=== PATIENT | female | born 1945 | race Caucasian/White ===

== ENCOUNTER 2016-08-23 02:18 | Inpatient (IN) | payer MEDICARE, OTHER ==
[2016-08-23] MEDS ORDERED: SODIUM CHLORIDE 1,000 ML IV STA (04:39)
[2016-08-23] MEDS ORDERED: morphine CARPU-JECT 4 MG/1 ML DISP.SYRIN IVPUSH ONE (04:39)
[2016-08-23] MEDS ORDERED: METOCLOPRAMIDE HCL INJECTION 10 MG/2 ML VIAL IVPB ONE (04:39)
[2016-08-23] MEDS ORDERED: morphine CARPU-JECT 4 MG/1 ML DISP.SYRIN ONE (04:54)
[2016-08-23] MEDS ORDERED: METOCLOPRAMIDE HCL INJECTION 10 MG/2 ML VIAL ONE (04:54)
[2016-08-23 05:19] LABS: MCH 27.9 pg (25.7-33.7); WHITE BLOOD COUNT 11.2 K/mm3 (4.0-10.0)
[2016-08-23 05:25] LABS: BASOPHIL 0.1 % (0-2.0); EOSINOPHIL 0.6 % (0-4.5); MCHC 32.7 g/dl (32.0-36.0); MEAN CELL VOLUME 85.3 fl (80-96); MEAN PLT VOLUME 7.9 fl (7.5-11.1); NEUTROPHILS 90.5 % (42.8-82.8); PLATELET COUNT 254 K/MM3 (134-434); RDW 13.6 % (11.6-15.6)
[2016-08-23 05:41] LABS: ALBUMIN 3.6 g/dl (3.4-5.0); AMYLASE 48 U/L (25-115); ANION GAP 9 (8-16); BILIRUBIN,TOTAL 2.9 mg/dL (0.2-1.0); CALCIUM 10.2 mg/dL (8.5-10.1); CO2 32 mmol/L (21-32); COCKROFT - GAULT 80.7925; CREATININE 0.8 mg/dL (0.55-1.02); GLUCOSE,RANDOM 121 mg/dL (74-106); SGOT/AST 166 U/L (15-37); SGPT/ALT 205 U/L (12-78); TOT PROT 6.8 g/dl (6.4-8.2)
[2016-08-23 05:44] LABS: ALK PHOS 245 U/L (45-117); TROPONIN I < 0.02 ng/ml (0.00-0.05)
[2016-08-23] MEDS ORDERED: SODIUM CHLORIDE 500 ML IV STA (06:35)
[2016-08-23] MEDS ORDERED: POTASSIUM CHLORIDE 20 MEQ PREMIX IVPB 100 ML IVPB ONE (06:36)
--- NOTE | 2016-08-23 06:40 | PDOC ---
History of Present Illness - General Chief Complaint: Nausea/Vomiting Stated Complaint: STOMACH PAIN,VOMITING Time Seen by Provider: 08/23/16 04:38 History Source: Patient, Family Exam Limitations: No Limitations - History of Present Illness Travel History: No Initial Comments: 08/23/16 06:37 70yo Female Patient w/ PmHx: HTN, Cervical Ca, Hysterectomy, presents to ED c/o worsening abdominal pain for past 3 days. Associated nausea. Patient states when she eats her abdomen hurts, and when she does not eat pain is worse. OTC [place] with no relief. Last meal 6-7pm last night. Patient denies any other complaints at this time. Timing/Duration: reports: constant, getting worse Quality: reports: severe Abdominal Pain Onset Location: reports: RUQ, epigastric Pain Radiation: reports: back Activities at Onset: reports: eating Treatment Prior to Arrive: improves with: antacids Aggravating Factors: improves with: Eating Alleviating Factors: improves with: None Past History - Travel Traveled outside of the country in the last 30 days: No Close contact w/someone who was outside of country & ill: No - Past Medical History Allergies/Adverse Reactions: Allergies Allergy/AdvReac Type Severity Reaction Status Date / Time No Known Allergies Allergy Verified 08/23/16 02:52 Home Medications: Ambulatory Orders Famotidine 20 mg PO BID 08/23/16 Hydrochlorothiazide 50 mg PO DAILY 08/23/16 Metoprolol Succinate [Toprol Xl] 50 mg PO DAILY 08/23/16 Montelukast Na [Singulair -] 10 mg PO PRN 08/23/16 - Psycho/Social/Smoking Cessation Hx Suicidal Ideation: No Smoking History: Never smoked Have you smoked in the past 12 months: No Information on smoking cessation initiated: No Hx Alcohol Use: No Drug/Substance Use Hx: No Abd/GI Specific PMHX - Complaint Specific PMHX Colitis: No Diverticulitis: No Gall Bladder Disease: No GERD: No Hepatitis: No Irritable Bowel Synd (IBS): No Pancreatitis: No GI Ulcer Disease: No Review of Systems - Review of Systems Able to Perform ROS?: Yes Is the patient limited [place] proficient: No Constitutional: No: Chills, Fever Respiratory: No: Cough, Shortness of Breath, Stridor Cardiac (ROS): No: Chest Pain, Lightheadedness, Palpitations, Chest Tightness ABD/GI: Yes: Diarrhea, Nausea, Poor Appetite, Poor Fluid Intake, Vomiting, Other (RUQ and Epigastric Pain). No: Constipated, Rectal Bleeding : No: Burning, Dysuria, Flank Pain, Hematuria Musculoskeletal: Yes: Back Pain Integumentary: No: Bruising, Erythema, Rash, Sweating Neurological: No: Headache, Seizure, Ataxia, Dizziness All Other Systems: Reviewed and Negative *Physical Exam - Vital Signs Last Vital Signs Temp Pulse Resp BP Pulse Ox 99.3 F 113 H 18 143/69 95 08/23/16 02:52 08/23/16 02:52 08/23/16 02:52 08/23/16 02:52 08/23/16 02:52 - Physical Exam General Appearance: Yes: Nourished, Appropriately Dressed, Apparent Distress, Moderate Distress. No: Mild Distress, Severe Distress Neck: positive: Trachea midline, Supple. negative: Decreased range of motion, Stridor, Lymphadenopathy (R), Lymphadenopathy (L) Respiratory/Chest: positive: Lungs Clear, Normal Breath Sounds. negative: Chest Tender, Respiratory Distress, Accessory Muscle Use, Labored Respiration, Rapid RR, Stridor, Wheezing Cardiovascular: positive: Tachycardia Gastrointestinal/Abdominal: positive: Normal Bowel Sounds, Tender (+ [place]), Soft, Guarding, Rebound, Tenderness (RUQ and Epigastric region), Other (Large abdomen). negative: Distended Musculoskeletal: positive: Normal Inspection. negative: CVA Tenderness Extremity: positive: Normal Capillary Refill, Normal Inspection, Normal Range of Motion. negative: Pedal Edema, Swelling, Calf Tenderness, Erythema, Inflammation Integumentary: positive: Normal Color, Dry, Warm Neurologic: positive: home builder II-XII NML intact, Fully Oriented, Alert, Normal Mood/ Affect, Normal Response, Motor Strength 5/5 ED Treatment Course - LABORATORY CBC & Chemistry Diagram: 08/23/16 05:10 08/23/16 05:10 - ADDITIONAL ORDERS Additional order review: Laboratory Results 08/23/16 05:10 Sodium 143 Potassium 2.6 L* Chloride 102 Carbon Dioxide 32 Anion Gap 9 BUN 14 Creatinine 0.8 Creat Clearance w eGFR > 60 Random Glucose 121 H Calcium 10.2 H Total Bilirubin 2.9 H AST 166 H ALT 205 H Alkaline Phosphatase 245 H Creatine Kinase 108 Troponin I < 0.02 Total Protein 6.8 Albumin 3.6 Total Amylase 48 Lipase 86 08/23/16 05:10 RBC 4.75 MCV 85.3 MCHC 32.7 RDW 13.6 MPV 7.9 Neutrophils % 90.5 H Lymphocytes % 3.8 L Monocytes % 5.0 Eosinophils % 0.6 Basophils % 0.1 - RADIOLOGY Radiology Studies Ordered: Category Date Time Status ABDOMEN & PELVIS CT WITH CONTR [CT] Stat CT Scan 08/23/16 04:40 Taken - Medications Given in the ED: ED Medications Discontinued Medications Generic Name Dose Route Start Last Admin Trade Name Freq PRN Reason Stop Dose Admin Sodium Chloride 1,000 mls @ 1,000 mls/hr 08/23/16 04:39 08/23/16 05:10 Normal Saline - IV 08/23/16 05:38 1,000 mls/hr ASDIR STA Administration Metoclopramide HCl 10 mg 08/23/16 04:39 08/23/16 05:10 Reglan Injection - IVPB 08/23/16 04:40 10 mg ONCE ONE Administration Morphine Sulfate 4 mg 08/23/16 04:39 08/23/16 05:10 Morphine Injection - IVPUSH 08/23/16 04:40 4 mg ONCE ONE Administration
[2016-08-23] MEDS ORDERED: KCL 10 MEQ IVPB 200 ML IVPB ONE (06:50)
--- NOTE | 2016-08-23 07:33 | PDOC ---
ED Treatment Course - LABORATORY CBC & Chemistry Diagram: 08/23/16 05:10 08/23/16 05:10 - ADDITIONAL ORDERS Additional order review: Laboratory Results 08/23/16 05:10 Sodium 143 Potassium 2.6 L* Chloride 102 Carbon Dioxide 32 Anion Gap 9 BUN 14 Creatinine 0.8 Creat Clearance w eGFR > 60 Random Glucose 121 H Calcium 10.2 H Total Bilirubin 2.9 H AST 166 H ALT 205 H Alkaline Phosphatase 245 H Creatine Kinase 108 Troponin I < 0.02 Total Protein 6.8 Albumin 3.6 Total Amylase 48 Lipase 86 08/23/16 05:10 RBC 4.75 MCV 85.3 MCHC 32.7 RDW 13.6 MPV 7.9 Neutrophils % 90.5 H Lymphocytes % 3.8 L Monocytes % 5.0 Eosinophils % 0.6 Basophils % 0.1 - Medications Given in the ED: ED Medications Discontinued Medications Generic Name Dose Route Start Last Admin Trade Name Freq PRN Reason Stop Dose Admin Sodium Chloride 1,000 mls @ 1,000 mls/hr 08/23/16 04:39 08/23/16 05:10 Normal Saline - IV 08/23/16 05:38 1,000 mls/hr ASDIR STA Administration Metoclopramide HCl 10 mg 08/23/16 04:39 08/23/16 05:10 Reglan Injection - IVPB 08/23/16 04:40 10 mg ONCE ONE Administration Morphine Sulfate 4 mg 08/23/16 04:39 08/23/16 05:10 Morphine Injection - IVPUSH 08/23/16 04:40 4 mg ONCE ONE Administration Potassium Chloride 20 meq 08/23/16 06:36 08/23/16 06:59 Potassium Chloride 20 Meq Premix Ivpb - IVPB 08/23/16 06:37 20 meq ONCE ONE Administration Progress Note - Progress Note Progress Note: I have received report from JEFF Aguilar regarding this patient. Pt's initial chief complaint: abdominal pain Pt's work up completed prior to sign out: labs, EKG, UA, CT scan abd/pelvis Pt treatment given from prior staff: IV fluids, morphine, reglan, potassium Pt plan to be completed: Awaiting gallbladder ultrasound Dispo: Most likely admission Medical Decision Making - Medical Decision Making A/P: 70 y/o female with worsening abdominal pain x 3 days. The patient also has nausea. She was worked up by JEFF Aguilar, has an elevated WBC count with left shift, grossly elevated liver enzymes but negative CT scan. Suspect wood. Awaiting gallbladder ultrasound. Gallbladder Ultrasound IMPRESSION: Multiple small gallstones with a 9.5 x 6mm stone at the level of the neck without sonographic evidence of acute cholecystitis. Spoke with Dr. Whitfield, surgery, who will be in shortly to see the patient. Paged Dr. Cavanaugh for admission. Pt given IV zosyn Pt made NPO. Spoke with Dr. Cavanaugh who accepts admission to med/surg. Paged Dr. Mirza - awaiting call back. *DC/Admit/Observation/Transfer Diagnosis at time of Disposition: Acute cholecystitis - Discharge Dispostion Condition at time of disposition: Stable Admit: Yes - Referrals
[2016-08-23 09:13] LABS: URINE APPEARANCE CLEAR; URINE BILIRUBIN NEGATIVE (NEGATIVE); URINE BLOOD NEGATIVE (NEGATIVE); URINE COLOR DKYELLOW; URINE GLUCOSE (UA) NEGATIVE (NEGATIVE); URINE KETONE NEGATIVE (NEGATIVE); URINE LEUK ESTERASE NEGATIVE (NEGATIVE); URINE NITRITE NEGATIVE (NEGATIVE); URINE PROTEIN NEGATIVE (NEGATIVE); URINE UROBILINOGEN 4.0 E.U/dl E.U./dl (0.2-1.0)
[2016-08-23] MEDS ORDERED: PIPERACILLIN/TAZOB 3.375 GM/50 ML PRE-DOCKED IVPB ONE (11:47)
[2016-08-23] MEDS ORDERED: PIPERACILLIN/TAZOB 3.375 GM 50 ML IVPB ONE (12:08)
[2016-08-23] MEDS ORDERED: METOPROLOL SUCCINATE 50 MG TAB.SR.24H (FP) PO ONE (13:58)
[2016-08-23] MEDS ORDERED: LACTATED RINGERS SOLUTION 1,000 ML IV SCH ×2 (14:00)
--- NOTE | 2016-08-23 14:03 | EKG ---
Test Reason : Blood Pressure : / mmHG Vent. Rate : 102 BPM Atrial Rate : 102 BPM P-R Int : 184 ms QRS Dur : 100 ms QT Int : 340 ms P-R-T Axes : 035 -30 040 degrees QTc Int : 443 ms SINUS TACHYCARDIA LEFT AXIS DEVIATION INFERIOR INFARCT , AGE UNDETERMINED ABNORMAL ECG NO PREVIOUS ECGS AVAILABLE Confirmed by CELESTE CROCKETT MD ([id number]) on 08/23/2016 2:03:46 PM Referred By: Confirmed By:CELESTE CROCKETT MD
--- NOTE | 2016-08-23 14:13 | CONSULT ---
Consult Consult Specialty:: Surgery Referred by:: SATISH Marlow Reason for Consultation:: cholecystitis - History of Present Illness Chief Complaint: RUQ pain x 3d associated with chills and vomiting yesterday History of Present Illness: Pt seen and examined with family at bedside in ER; time spent 35 mins. 70yo F with HTN, asthma, h/o cervical CA s/p vaginal hysterectomy and laparoscopic ?LN dissection ~9yrs ago (no chemo/XRT needed), presents with 3 days of RUQ abdominal pain unresponsive to antacids. Pt thought it was gas. She had been eating anyway, and the pain waxed and waned, but yesterday was the worst - associated with shaking chills, itching, and multiple episodes of vomiting beginning after dinner (meatloaf, mashed potatoes, corn on cob). Nothing has really relieved pain or made it specifically worse. Last BM was yesterday, tends to constipation/hard stools). Currently without nausea or pain. She had her regular meds yesterday morning but not since and does take baby aspirin daily. Last 800mg ibuprofen (occasional use) for knee arthritis was a few days ago. In ER, she had temp 99.3, mildly elevated wbc and LFTs, normal am/lip, low K+ and CO2 32. She has had some K+ replaced and been given Zosyn and some fluids. CT abd/pelvis showed some diverticulosis, mild periportal edema without ductal dilation and a ~1cm calcification thought possibly to be a lymph node; US shows multiple gallstones and a stone likely impacted in the cystic duct/near the neck of the gallbladder without pericholecystic fluid or wall thickening. CBD measures up to 6.7mm. Pt also reports her doctor is following small findings (nodules?) on chest XR, found few weeks ago - she is scheduled for repeat imaging end of September and a specialist visit in October. - History Source History Provided By: Patient Limitations to Obtaining History: No Limitations - Past Medical History Cardio/Vascular: Yes: HTN, [place] (per patient, her EKG showed an old infarction, but she was never aware of one) Pulmonary: Yes: Asthma (uses inhaler few times a week, lately using Advair diskus daily instead of prn) Gastrointestinal: Yes: Constipation Reproductive: Yes: Other (cervical CA s/p hysterectomy) ...: No Musculoskeletal: Yes: Osteoarthritis (mostly in knees) Endocrine: Yes: Diabetes Mellitus (previous dx of pre-diabetes, but better with dietary changes) - Past Surgical History Past Surgical History: Yes: Hysterectomy Additional Surgical History: pelvic laparoscopy (LN dissection per pt) - Alcohol/Substance Use Hx Alcohol Use: Yes (rare sangria) History of Substance Use: reports: None - Smoking History Smoking history: Never smoked Have you smoked in the past 12 months: No Home Medications - Allergies Allergies/Adverse Reactions: Allergies Allergy/AdvReac Type Severity Reaction Status Date / Time No Known Allergies Allergy Verified 08/23/16 02:52 - Home Medications Home Medications: Ambulatory Orders Albuterol Sulfate Inhaler - [Ventolin HFA Inhaler -] 1 - 2 puff IN PRN 08/23/16 Aspirin [Aspirin EC] PO DAILY 08/23/16 Famotidine 20 mg PO BID 08/23/16 Fluticasone/Salmeterol [Advair 250-50 Diskus] IN DAILY PRN 08/23/16 Hydrochlorothiazide 50 mg PO DAILY 08/23/16 Ibuprofen PO PRN PRN 08/23/16 Metoprolol Succinate [Toprol Xl] 50 mg PO DAILY 08/23/16 Montelukast Na [Singulair -] 10 mg PO PRN 08/23/16 Family Disease History - Family Disease History Family Disease History: Diabetes: Father ( late 60s of heart attack, had finger amputations sec to DM/smoking), Heart Disease: Father, [place]: Mother ( breast at 31, of) Review of Systems - Review of Systems Constitutional: reports: Chills (yesterday). denies: Unintentional Wgt. Loss Eyes: reports: Other (wears reading glasses). denies: Blurred Vision, Double Vision HENT: denies: Difficult Swallowing, Hearing Loss Cardiovascular: denies: Chest Pain, Palpitations Respiratory: reports: SOB on Exertion. denies: Cough, Orthopnea Gastrointestinal: reports: Abdominal Pain, Constipation, Nausea (with hpi), Vomiting (with hpi). denies: Diarrhea Genitourinary: reports: Frequency (including nocturia). denies: Burning, Dysuria Breasts: reports: No Symptoms Reported Musculoskeletal: reports: Joint Pain (knees mainly). denies: Back Pain, Muscle Weakness Integumentary: denies: Rash, Wound Neurological: denies: Dizziness, Headache Hematology/Lymphatic: denies: Easily Bruised, Excessive Bleeding, Swollen Glands Physical Exam Vital Signs: Vital Signs Temperature 99.3 F 08/23/16 02:52 Pulse Rate 78 08/23/16 08:27 Respiratory Rate 18 08/23/16 08:27 Blood Pressure 100/59 08/23/16 08:27 O2 Sat by Pulse Oximetry (%) 98 08/23/16 08:27 Constitutional: Yes: No Distress, Obese Eyes: Yes: Conjunctiva Clear, EOM Intact HENT: Yes: Atraumatic, Normocephalic Cardiovascular: Yes: Regular Rate and Rhythm. No: Murmur Respiratory: Yes: Regular, CTA Bilaterally. No: Wheezes Gastrointestinal: Yes: Soft, Abdomen, Obese. No: Distention, Palpable Mass, Tenderness (previously tender, none at time of exam, no Arevalo's at present) ...Rectal Exam: Yes: Deferred Renal/: No: CVA Tenderness - Left, CVA Tenderness - Right Extremities: No: Calf Tenderness Edema: Yes (minimal at ankles/feet) Peripheral Pulses WNL: Yes Integumentary: No: Rash, Venous Stasis Changes Neurological: Yes: Alert, Oriented Labs: wbc 11 K was 2.6, CO2 32 H/H 13/40 am/lip normal bili 2.9 alk phos 245, ALT/AST 205/166 Laboratory Results - last 24 hr 08/23/16 08/23/16 08/23/16 05:10 05:10 08:55 WBC 11.2 H RBC 4.75 Hgb 13.2 Hct 40.5 MCV 85.3 MCHC 32.7 RDW 13.6 Plt Count 254 MPV 7.9 Neutrophils % 90.5 H Lymphocytes % 3.8 L Monocytes % 5.0 Eosinophils % 0.6 Basophils % 0.1 Sodium 143 Potassium 2.6 L* Chloride 102 Carbon Dioxide 32 Anion Gap 9 BUN 14 Creatinine 0.8 Creat Clearance w eGFR > 60 Random Glucose 121 H Calcium 10.2 H Total Bilirubin 2.9 H AST 166 H ALT 205 H Alkaline Phosphatase 245 H Creatine Kinase 108 Troponin I < 0.02 Total Protein 6.8 Albumin 3.6 Total Amylase 48 Lipase 86 Urine Color Dkyellow Urine Appearance Clear Urine pH 7.0 Urine Protein Negative Urine Glucose (UA) Negative Urine Ketones Negative Urine Blood Negative Urine Nitrite Negative Urine Bilirubin Negative Urine Urobilinogen 4.0 e.u/dl H Ur Leukocyte Esterase Negative Imaging - Results Cat Scan: Report Reviewed, Image Reviewed (calcification consistent with gallstone near cystic duct) Ultrasound: Report Reviewed, Image Reviewed (impacted gallstone with others in gallbladder, cbd to 0.67cm, no wall thickening or pericholecystic fluid) MRI: Pending (mrcp) EKG: Report Reviewed, Image Reviewed (sinus tach 102, possible old inferior infarct) Problem List - Problems (1) Calculus of gallbladder with biliary obstruction but without cholecystitis Assessment/Plan: Likely impacted stone in neck of gallbladder/cystic duct with multiple gallstones in gallbladder. Patient will need MRCP prior to cholecystectomy. Agree with antibiotics given elevation of WBC with left shift, h/o chills and low-grade temp on presentation. Maintain NPO except beta-zachery with sips and IV hydration. Would hold baby aspirin for now. ER has started trending labs and correcting electrolyte abnormalities. Discussed laparoscopic possible open cholecystectomy with patient and family members at bedside. Risks/benefits/alternatives discussed including but not limited to bleeding, infection, bile leak, injury to liver/intestines/bile ducts /nearby structures. Patient agreeable to surgery; will followup after MRCP and GI consult to schedule, may be able to do tomorrow. Thank you for the opportunity to participate in the care of this patient. Code(s): K80.21 - CALCULUS OF GALLBLADDER W/O CHOLECYSTITIS WITH OBSTRUCTION (2) Hypertension Assessment/Plan: continue beta-zachery, hold diuretic, hold baby asa Code(s): I10 - ESSENTIAL (PRIMARY) HYPERTENSION (3) Obesity (BMI 30.0-34.9) Code(s): E66.9 - OBESITY, UNSPECIFIED (4) Asthma Assessment/Plan: continue home meds Code(s): J45.909 - UNSPECIFIED ASTHMA, UNCOMPLICATED (5) Hypokalemia, gastrointestinal losses Assessment/Plan: replacing K+ and rechecking labs, antiemetic prn Code(s): E87.6 - HYPOKALEMIA (6) Dehydration, mild Assessment/Plan: NPO/IVF - will start with LR Code(s): E86.0 - DEHYDRATION
[2016-08-23] MEDS ORDERED: METOPROLOL SUCCINATE 50 MG TAB.SR.24H (FP) ONE (14:28)
[2016-08-23 15:55] LABS: BASOPHIL 0.2 % (0-2.0); EOSINOPHIL 0.3 % (0-4.5); MCH 28.1 pg (25.7-33.7); MCHC 32.9 g/dl (32.0-36.0); MEAN CELL VOLUME 85.4 fl (80-96); MEAN PLT VOLUME 8.1 fl (7.5-11.1); NEUTROPHILS 87.6 % (42.8-82.8); PLATELET COUNT 231 K/MM3 (134-434); RDW 13.8 % (11.6-15.6); WHITE BLOOD COUNT 13.7 K/mm3 (4.0-10.0)
[2016-08-23 16:25] LABS: ALBUMIN 3.1 g/dl (3.4-5.0); ANION GAP 8 (8-16); BILIRUBIN,TOTAL 2.3 mg/dL (0.2-1.0); CALCIUM 9.2 mg/dL (8.5-10.1); CO2 32 mmol/L (21-32); COCKROFT - GAULT 107.7205; CREATININE 0.6 mg/dL (0.55-1.02); GLUCOSE,RANDOM 104 mg/dL (74-106); SGOT/AST 124 U/L (15-37); TOT PROT 6.1 g/dl (6.4-8.2)
[2016-08-23 16:29] LABS: ALK PHOS 204 U/L (45-117); SGPT/ALT 182 U/L (12-78)
[2016-08-23] MEDS ORDERED: KCL 10 MEQ IVPB 100 ML IVPB ONE (17:34)
[2016-08-23] MEDS: KCL 10 MEQ IVPB 100 ML IVPB SCH ×5 (17:47→23:55)
[2016-08-23] MEDS ORDERED: SODIUM CHLORIDE 0.45% 1,000 ML with POTASSIUM CHLORIDE 20 MEQ IVPB SCH (18:00)
[2016-08-23] MEDS ORDERED: INSULIN (NOVOLOG) ASPART 100 UNITS/ML 10ML VIAL ONE (18:05)
[2016-08-23] MEDS ORDERED: SODIUM CHLORIDE 0.45%/POT 1,000 ML IV SCH (18:15)
--- NOTE | 2016-08-23 19:16 | CON.GI ---
Consult Consult Specialty:: gastroenterology Referred by:: hospitalist/ Payal Green MD - History of Present Illness History of Present Illness: 70 y/o female with PMH of cervical ca,s/p TAHBSO 10 years ago, lung mass recently diagnosed 2 mos ago was doing well until 3 days ago when she developed progressive epigastric and ruq pain associated with nausea and vomiting. - Past Medical History Cardio/Vascular: Yes: HTN, [place] (per patient, her EKG showed an old infarction, but she was never aware of one) Pulmonary: Yes: Asthma (uses inhaler few times a week, lately using Advair diskus daily instead of prn) Gastrointestinal: Yes: Constipation ...: No Musculoskeletal: Yes: Osteoarthritis (mostly in knees) Endocrine: Yes: Diabetes Mellitus (previous dx of pre-diabetes, but better with dietary changes) - Past Surgical History Past Surgical History: Yes: Hysterectomy Additional Surgical History: pelvic laparoscopy (LN dissection per pt) - Alcohol/Substance Use Hx Alcohol Use: Yes (rare sangria) History of Substance Use: reports: None - Smoking History Smoking history: Never smoked Have you smoked in the past 12 months: No Home Medications - Allergies Allergies/Adverse Reactions: Allergies Allergy/AdvReac Type Severity Reaction Status Date / Time No Known Allergies Allergy Verified 08/23/16 02:52 - Home Medications Home Medications: Ambulatory Orders Albuterol Sulfate Inhaler - [Ventolin HFA Inhaler -] 1 - 2 puff IN PRN 08/23/16 Aspirin [Aspirin EC] PO DAILY 08/23/16 Famotidine 20 mg PO BID 08/23/16 Fluticasone/Salmeterol [Advair 250-50 Diskus] IN DAILY PRN 08/23/16 Hydrochlorothiazide 50 mg PO DAILY 08/23/16 Ibuprofen PO PRN PRN 08/23/16 Metoprolol Succinate [Toprol Xl] 50 mg PO DAILY 08/23/16 Montelukast Na [Singulair -] 10 mg PO PRN 08/23/16 Family Disease History - Family Disease History Family Disease History: Diabetes: Father ( late 60s of heart attack, had finger amputations sec to DM/smoking), Heart Disease: Father, [place]: Mother ( breast at 31, of) Review of Systems - Review of Systems Constitutional: denies: Fever Eyes: denies: Blind Spots HENT: denies: Difficult Swallowing Neck: denies: Decreased ROM Cardiovascular: denies: Chest Pain Respiratory: denies: SOB Gastrointestinal: reports: Abdominal Pain. denies: Dysphagia, Indigestion, Melena, Nausea, Rectal Bleeding Physical Exam-GI Vital Signs: Vital Signs Temperature 98.7 F 08/23/16 18:00 Pulse Rate 79 08/23/16 18:00 Respiratory Rate 20 08/23/16 18:00 Blood Pressure 113/56 08/23/16 18:00 O2 Sat by Pulse Oximetry (%) 97 08/23/16 15:02 Constitutional: Yes: Well Nourished Eyes: Yes: Conjunctiva Clear HENT: Yes: Atraumatic Neck: Yes: Supple Cardiovascular: Yes: Regular Rate and Rhythm Respiratory: Yes: CTA Bilaterally ...Palpate: Yes: Soft. No: Firm/Rigid, Guarding, Hepatomegaly, Mass, Pulsatile Mass, Splenomegaly, Tenderness (--on pain meds) Labs: CBC, BMP 08/23/16 15:50 08/23/16 15:50 Hepatic Panel Total Bilirubin 2.3 mg/dL (0.2-1.0) H D 08/23/16 15:50 AST 124 U/L (15-37) H D 08/23/16 15:50 ALT 182 U/L (12-78) H 08/23/16 15:50 Alkaline Phosphatase 204 U/L (45-117) H 08/23/16 15:50 Albumin 3.1 g/dl (3.4-5.0) L 08/23/16 15:50 Problem List - Problems (1) Acute cholecystitis Assessment/Plan: associated with elevated liver enzymes and and top normal common bile duct R> MRCP if negative ok to have cholecystectomy discussed possibility of ERC, discusses risk including pancreatitis and anaesthesia discuused with Dr Whitfield Code(s): K81.0 - ACUTE CHOLECYSTITIS (2) Lung mass Assessment/Plan: R>chest CT pulmonary consult Code(s): R91.8 - OTHER NONSPECIFIC ABNORMAL FINDING OF LUNG FIELD
--- NOTE | 2016-08-23 20:13 | HP ---
Admitting History and Physical - Primary Care Physician PCP: Brunilda Cavanaugh - Admission History of Present Illness: 70yo Female Patient w/ PmHx: HTN, Cervical Ca, Hysterectomy, presents to ED c/o worsening abdominal pain for past 3 days. Associated nausea. Patient states when she eats her abdomen hurts, and when she does not eat pain is worse. OTC Ag[place] with no relief. Last meal 6-7pm last night. CAME TO ER FOR FURTHER EVALUATION - Past Medical History Cardiovascular: Yes: HTN, NM (per patient, her EKG showed an old infarction, but she was never aware of one) Pulmonary: Yes: Asthma (uses inhaler few times a week, lately using Advair diskus daily instead of prn) Gastrointestinal: Yes: Constipation ...: No Musculoskeletal: Yes: Osteoarthritis (mostly in knees) Endocrine: Yes: Diabetes Mellitus (previous dx of pre-diabetes, but better with dietary changes) - Past Surgical History Past Surgical History: Yes: Hysterectomy - Smoking History Smoking history: Never smoked Have you smoked in the past 12 months: No - Alcohol/Substance Use Hx Alcohol Use: Yes (rare sangria) History of Substance Use: reports: None Home Medications - Allergies Allergies/Adverse Reactions: Allergies Allergy/AdvReac Type Severity Reaction Status Date / Time No Known Allergies Allergy Verified 08/23/16 02:52 - Home Medications Home Medications: Ambulatory Orders Albuterol Sulfate Inhaler - [Ventolin HFA Inhaler -] 1 - 2 puff IN PRN 08/23/16 Aspirin [Aspirin EC] PO DAILY 08/23/16 Famotidine 20 mg PO BID 08/23/16 Fluticasone/Salmeterol [Advair 250-50 Diskus] IN DAILY PRN 08/23/16 Hydrochlorothiazide 50 mg PO DAILY 08/23/16 Ibuprofen PO PRN PRN 08/23/16 Metoprolol Succinate [Toprol Xl] 50 mg PO DAILY 08/23/16 Montelukast Na [Singulair -] 10 mg PO PRN 08/23/16 Family Disease History - Family Disease History Family Disease History: Diabetes: Father ( late 60s of heart attack, had finger amputations sec to DM/smoking), Heart Disease: Father, [place]: Mother ( breast at 31, of) Physical Examination Vital Signs: Vital Signs Temperature 98.7 F 08/23/16 18:00 Pulse Rate 79 08/23/16 18:00 Respiratory Rate 20 08/23/16 18:00 Blood Pressure 113/56 08/23/16 18:00 O2 Sat by Pulse Oximetry (%) 97 08/23/16 15:02 Constitutional: Yes: No Distress HENT: Yes: Atraumatic Neck: Yes: Supple Cardiovascular: Yes: Regular Rate and Rhythm Respiratory: Yes: CTA Bilaterally Gastrointestinal: Yes: Normal Bowel Sounds Extremities: Yes: WNL Neurological: Yes: Alert, Oriented Labs: CBC, BMP 08/23/16 15:50 08/23/16 15:50 Problem List - Problems (1) Acute cholecystitis Assessment/Plan: NPO IVF, IV ABX GI AND SURGERY CONSULT Code(s): K81.0 - ACUTE CHOLECYSTITIS (2) Asthma Assessment/Plan: STABLE CONTINUE HOME MEDS Code(s): J45.909 - UNSPECIFIED ASTHMA, UNCOMPLICATED (3) Hypertension Assessment/Plan: ON MEDS STABLE Code(s): I10 - ESSENTIAL (PRIMARY) HYPERTENSION (4) Hypokalemia, gastrointestinal losses Assessment/Plan: REPLACE K FU LABS Code(s): E87.6 - HYPOKALEMIA Assessment/Plan Laboratory Tests 08/23/16 08/23/16 08/23/16 05:10 05:10 08:55 WBC 11.2 H RBC 4.75 Hgb 13.2 Hct 40.5 MCV 85.3 MCHC 32.7 RDW 13.6 Plt Count 254 MPV 7.9 Neutrophils % 90.5 H Lymphocytes % 3.8 L Monocytes % 5.0 Eosinophils % 0.6 Basophils % 0.1 Sodium 143 Potassium 2.6 L* Chloride 102 Carbon Dioxide 32 Anion Gap 9 BUN 14 Creatinine 0.8 Creat Clearance w eGFR > 60 Random Glucose 121 H Calcium 10.2 H Total Bilirubin 2.9 H AST 166 H ALT 205 H Alkaline Phosphatase 245 H Creatine Kinase 108 Troponin I < 0.02 Total Protein 6.8 Albumin 3.6 Total Amylase 48 Lipase 86 Urine Color Dkyellow Urine Appearance Clear Urine pH 7.0 Ur Specific [place] 1.010 Urine Protein Negative Urine Glucose (UA) Negative Urine Ketones Negative Urine Blood Negative Urine Nitrite Negative Urine Bilirubin Negative Urine Urobilinogen 4.0 e.u/dl H Ur Leukocyte Esterase Negative Blood Type Antibody Screen 08/23/16 08/23/16 08/23/16 15:50 15:50 15:50 WBC 13.7 H RBC 4.42 Hgb 12.4 Hct 37.8 MCV 85.4 MCHC 32.9 RDW 13.8 Plt Count 231 MPV 8.1 Neutrophils % 87.6 H Lymphocytes % 6.8 L D Monocytes % 5.1 Eosinophils % 0.3 Basophils % 0.2 Sodium 144 Potassium 3.0 L Chloride 104 Carbon Dioxide 32 Anion Gap 8 BUN 13 Creatinine 0.6 D Creat Clearance w eGFR > 60 Random Glucose 104 Calcium 9.2 Total Bilirubin 2.3 H D AST 124 H D ALT 182 H Alkaline Phosphatase 204 H Creatine Kinase Troponin I Total Protein 6.1 L Albumin 3.1 L Total Amylase Lipase Urine Color Urine Appearance Urine pH Ur Specific [place] Urine Protein Urine Glucose (UA) Urine Ketones Urine Blood Urine Nitrite Urine Bilirubin Urine Urobilinogen Ur Leukocyte Esterase Blood Type O POSITIVE Antibody Screen Negative Active Medications Generic Name Dose Route Start Last Admin Trade Name Freq PRN Reason Stop Dose Admin Potassium Chloride/Sodium Chloride 1,000 mls @ 125 mls/hr 08/23/16 18:15 1/2ns+20meq Kcl IV ASDIR HI Piperacillin Sod/Tazobactam Sod 3.375 gm 08/24/16 18:30 Zosyn 3.375gm Ivpb (Pre-Docked) IVPB Q8H-IV HI Protocol
[2016-08-23] MEDS ORDERED: HYDROmorphone HCL CARPU-JECT 1 MG/1 ML DISP.SYRIN IVPB PRN (20:16)
[2016-08-23] MEDS ORDERED: ALBUTEROL SO4 2.5/IPRATROPIUM 0.5 INH SOL 3 ML VIAL.NEB. NEB PRN (20:17)
[2016-08-23] MEDS ORDERED: SODIUM CHLORIDE 1,000 ML IV SCH (20:30)
[2016-08-23 22:21] LABS: TROPONIN I 0.05 ng/ml (0.00-0.05)
[2016-08-23] MEDS ORDERED: PT OWN MED DRAWER 7, Y5N ONE (22:30)
[2016-08-23] MEDS: PANTOPRAZOLE SODIUM 100 ML IVPB SCH (22:42)
[2016-08-23 23:35] VITALS: BMI 36.9
[2016-08-24 07:54] LABS: BASOPHIL 0.2 % (0-2.0); MCH 29.1 pg (25.7-33.7); MCHC 33.8 g/dl (32.0-36.0); MEAN CELL VOLUME 86.3 fl (80-96); MEAN PLT VOLUME 7.9 fl (7.5-11.1); NEUTROPHILS 81.4 % (42.8-82.8); PLATELET COUNT 197 K/MM3 (134-434); RDW 13.8 % (11.6-15.6); WHITE BLOOD COUNT 9.4 K/mm3 (4.0-10.0)
[2016-08-24 08:10] LABS: ALBUMIN 2.9 g/dl (3.4-5.0); ANION GAP 11 (8-16); CALCIUM 9.1 mg/dL (8.5-10.1); CO2 29 mmol/L (21-32); CREATININE 0.4 mg/dL (0.55-1.02); GLUCOSE,RANDOM 84 mg/dL (74-106); SGOT/AST 71 U/L (15-37); SGPT/ALT 145 U/L (12-78)
[2016-08-24 08:12] LABS: ALK PHOS 188 U/L (45-117); BILIRUBIN,TOTAL 1.4 mg/dL (0.2-1.0); TOT PROT 5.9 g/dl (6.4-8.2)
--- NOTE | 2016-08-24 09:09 | PN ---
Progress Note (short form) - Note Progress Note: Came to evaluate patient, she states Dr. Doan is her kosher butcher and has had testing in his office. Will inform Dr. Cavanaugh and change consult. Will inform Dr. Doan
[2016-08-24] MEDS ORDERED: KCL 10 MEQ IVPB 100 ML IVPB SCH (09:20)
[2016-08-24] MEDS: KCL 10 MEQ IVPB 100 ML IVPB SCH ×2 (10:08→11:05)
--- NOTE | 2016-08-24 10:09 | CON.CARD ---
Consult Consult Specialty:: Cardiology Reason for Consultation:: preop clearence - History of Present Illness Chief Complaint: abd pain History of Present Illness: 70yo Female Patient w/ PmHx: HTN, Cervical Ca, Hysterectomy, presents to ED c/o worsening abdominal pain for past 3 days. Associated nausea. Patient states when she eats her abdomen hurts, and when she does not eat pain is worse. OTC Agnes [place] with no relief. Last meal 6-7pm last night. Patient denies any other complaints at this time. PMH Asthma COPD diet controlled DM HTN Osteoporosis Normal [facility] mild carotid plaque 2017 - History Source History Provided By: Patient, Medical Record - Past Medical History Cardio/Vascular: Yes: HTN, ID (per patient, her EKG showed an old infarction, but she was never aware of one) Pulmonary: Yes: Asthma (uses inhaler few times a week, lately using Advair diskus daily instead of prn) Gastrointestinal: Yes: Constipation ...: No Musculoskeletal: Yes: Osteoarthritis (mostly in knees) Endocrine: Yes: Diabetes Mellitus (previous dx of pre-diabetes, but better with dietary changes) - Past Surgical History Past Surgical History: Yes: Hysterectomy Additional Surgical History: pelvic laparoscopy (LN dissection per pt) - Alcohol/Substance Use Hx Alcohol Use: Yes (rare sangria) History of Substance Use: reports: None - Smoking History Smoking history: Never smoked Have you smoked in the past 12 months: No Home Medications - Allergies Allergies/Adverse Reactions: Allergies Allergy/AdvReac Type Severity Reaction Status Date / Time No Known Allergies Allergy Verified 08/23/16 02:52 - Home Medications Home Medications: Ambulatory Orders Albuterol Sulfate Inhaler - [Ventolin HFA Inhaler -] 1 - 2 puff IN PRN 08/23/16 Aspirin [Aspirin EC] PO DAILY 08/23/16 Famotidine 20 mg PO BID 08/23/16 Fluticasone/Salmeterol [Advair 250-50 Diskus] IN DAILY PRN 08/23/16 Hydrochlorothiazide 50 mg PO DAILY 08/23/16 Ibuprofen PO PRN PRN 08/23/16 Metoprolol Succinate [Toprol Xl] 50 mg PO DAILY 08/23/16 Montelukast Na [Singulair -] 10 mg PO PRN 08/23/16 Family Disease History - Family Disease History Family Disease History: Diabetes: Father ( late 60s of heart attack, had finger amputations sec to DM/smoking), Heart Disease: Father, [place]: Mother ( breast at 31, of) Review of Systems - Review of Systems Constitutional: reports: No Symptoms Eyes: reports: No Symptoms HENT: reports: No Symptoms Neck: reports: No Symptoms Cardiovascular: reports: No Symptoms Gastrointestinal: reports: Abdominal Pain Genitourinary: reports: No Symptoms Breasts: reports: No Symptoms Reported Musculoskeletal: reports: No Symptoms Integumentary: reports: No Symptoms Neurological: reports: No Symptoms Endocrine: reports: No Symptoms Hematology/Lymphatic: reports: No Symptoms Psychiatric: reports: No Symptoms Vital Signs: Vital Signs Temperature 99.8 F H 08/24/16 06:00 Pulse Rate 87 08/24/16 06:00 Respiratory Rate 20 08/24/16 06:00 Blood Pressure 127/58 08/24/16 06:00 O2 Sat by Pulse Oximetry (%) 97 08/23/16 15:02 Constitutional: Yes: Well Nourished, No Distress, Calm Eyes: Yes: WNL, Conjunctiva Clear, EOM Intact HENT: Yes: WNL, Atraumatic, Normocephalic Neck: Yes: WNL, Supple, Trachea Midline Respiratory: Yes: WNL, Regular, CTA Bilaterally Gastrointestinal: Yes: WNL, Normal Bowel Sounds Renal/: Yes: WNL Cardiovascular: Yes: WNL, Regular Rate and Rhythm Musculoskeletal: Yes: WNL Extremities: Yes: WNL Integumentary: Yes: WNL Neurological: Yes: WNL, Alert, Oriented ...Motor Strength: WNL Psychiatric: Yes: WNL, Alert, Oriented - Other Data Labs, Other Data: CBC, BMP 08/24/16 06:55 08/24/16 06:55 Troponin, BNP 08/23/16 21:34 Troponin I 0.05 Troponin, BNP 08/23/16 21:34 Troponin I 0.05 Laboratory Tests 08/23/16 08/23/16 08/23/16 05:10 05:10 08:55 WBC 11.2 H RBC 4.75 Hgb 13.2 Hct 40.5 MCV 85.3 MCHC 32.7 RDW 13.6 Plt Count 254 MPV 7.9 Neutrophils % 90.5 H Lymphocytes % 3.8 L Monocytes % 5.0 Eosinophils % 0.6 Basophils % 0.1 Sodium 143 Potassium 2.6 L* Chloride 102 Carbon Dioxide 32 Anion Gap 9 BUN 14 Creatinine 0.8 Creat Clearance w eGFR > 60 Random Glucose 121 H Calcium 10.2 H Total Bilirubin 2.9 H AST 166 H ALT 205 H Alkaline Phosphatase 245 H Creatine Kinase 108 Troponin I < 0.02 Total Protein 6.8 Albumin 3.6 Total Amylase 48 Lipase 86 Urine Color Dkyellow Urine Appearance Clear Urine pH 7.0 Ur Specific [place] 1.010 Urine Protein Negative Urine Glucose (UA) Negative Urine Ketones Negative Urine Blood Negative Urine Nitrite Negative Urine Bilirubin Negative Urine Urobilinogen 4.0 e.u/dl H Ur Leukocyte Esterase Negative Blood Type Antibody Screen 08/23/16 08/23/16 08/23/16 15:50 15:50 15:50 WBC 13.7 H RBC 4.42 Hgb 12.4 Hct 37.8 MCV 85.4 MCHC 32.9 RDW 13.8 Plt Count 231 MPV 8.1 Neutrophils % 87.6 H Lymphocytes % 6.8 L D Monocytes % 5.1 Eosinophils % 0.3 Basophils % 0.2 Sodium 144 Potassium 3.0 L Chloride 104 Carbon Dioxide 32 Anion Gap 8 BUN 13 Creatinine 0.6 D Creat Clearance w eGFR > 60 Random Glucose 104 Calcium 9.2 Total Bilirubin 2.3 H D AST 124 H D ALT 182 H Alkaline Phosphatase 204 H Creatine Kinase Troponin I Total Protein 6.1 L Albumin 3.1 L Total Amylase Lipase Urine Color Urine Appearance Urine pH Ur Specific [place] Urine Protein Urine Glucose (UA) Urine Ketones Urine Blood Urine Nitrite Urine Bilirubin Urine Urobilinogen Ur Leukocyte Esterase Blood Type O POSITIVE Antibody Screen Negative 08/23/16 08/24/16 08/24/16 21:34 06:55 06:55 WBC 9.4 D RBC 4.34 Hgb 12.6 Hct 37.4 MCV 86.3 MCHC 33.8 RDW 13.8 Plt Count 197 MPV 7.9 Neutrophils % 81.4 Lymphocytes % 10.9 D Monocytes % 4.5 Eosinophils % 3.0 D Basophils % 0.2 Sodium 143 Potassium 2.9 L* Chloride 103 Carbon Dioxide 29 Anion Gap 11 BUN 9 D Creatinine 0.4 L D Creat Clearance w eGFR > 60 Random Glucose 84 Calcium 9.1 Total Bilirubin 1.4 H D AST 71 H D ALT 145 H D Alkaline Phosphatase 188 H Creatine Kinase 105 Troponin I 0.05 Total Protein 5.9 L Albumin 2.9 L Total Amylase Lipase Urine Color Urine Appearance Urine pH Ur Specific [place] Urine Protein Urine Glucose (UA) Urine Ketones Urine Blood Urine Nitrite Urine Bilirubin Urine Urobilinogen Ur Leukocyte Esterase Blood Type Antibody Screen Imaging - Results Chest X-ray: Image Reviewed (wnl) EKG: Image Reviewed (sr rep abn) Problem List - Problems (1) Acute cholecystitis Code(s): K81.0 - ACUTE CHOLECYSTITIS (2) Asthma Code(s): J45.909 - UNSPECIFIED ASTHMA, UNCOMPLICATED (3) Calculus of gallbladder with biliary obstruction but without cholecystitis Code(s): K80.21 - CALCULUS OF GALLBLADDER W/O CHOLECYSTITIS WITH OBSTRUCTION (4) Dehydration, mild Code(s): E86.0 - DEHYDRATION (5) Hypertension Code(s): I10 - ESSENTIAL (PRIMARY) HYPERTENSION (6) Hypokalemia, gastrointestinal losses Code(s): E87.6 - HYPOKALEMIA (7) Lung mass Code(s): R91.8 - OTHER NONSPECIFIC ABNORMAL FINDING OF LUNG FIELD (8) Obesity (BMI 30.0-34.9) Code(s): E66.9 - OBESITY, UNSPECIFIED Assessment/Plan Acute cholecystatis Hypokalemia Asthma COPD diet controlled DM HTN Osteoporosis Normal [facility] mild carotid plaque 2017 Plan; suplement K Patient is cleared for GI w/u surgery from cardiac point of view.
[2016-08-24] MEDS: METOPROLOL SUCCINATE 50 MG TAB.SR.24H (FP) PO SCH (10:15)
[2016-08-24] MEDS: PANTOPRAZOLE SODIUM 100 ML IVPB SCH (10:16)
[2016-08-24] MEDS: PIPERACILLIN/TAZOB 3.375 GM/50 ML PRE-DOCKED IVPB SCH ×2 (11:07→17:37)
[2016-08-24] MEDS ORDERED: PIPERACILLIN/TAZOB 3.375 GM 50 ML IVPB ONE (11:07)
--- NOTE | 2016-08-24 11:44 | CON.PULM ---
Consult Consult Specialty:: PULM/CCM Referred by:: Abnormal CT Reason for Consultation:: Abnormal CT - History of Present Illness Chief Complaint: abdominal pain History of Present Illness: 70 F, HTN, Cervical CA, S/P Hysterectomy, and apparent long standing Asthma. Reports having asthma like symptoms in childhood requiring BD TX. Reports asthma has gotten less severe as an adult. Never intubated, never steroid dependent, unknown PEF. Maintained on Advair and PRN Albuterol. Minimal nocturnal symptoms. Never required ER/urgent care visit. [place] from [place] 2 /3. (+) household smokers growing up. Life long non- smoker. No occupational exposure. CT Chest : chronic changes / minimal bronchiectasis / LLL atelectasis. Admitted via the ER due to worsening abdominal pain for past 3 days. Pain associated with nausea and worsened after PO intake. No clear history consistent with OSAS. - History Source History Provided By: Patient Limitations to Obtaining History: No Limitations - Past Medical History Cardio/Vascular: Yes: HTN, CT (per patient, her EKG showed an old infarction, but she was never aware of one) Pulmonary: Yes: Asthma (uses inhaler few times a week, lately using Advair diskus daily instead of prn). No: O2 Dependent, Previously Intubated Gastrointestinal: Yes: Constipation ...: No Musculoskeletal: Yes: Osteoarthritis (mostly in knees) Endocrine: Yes: Diabetes Mellitus (previous dx of pre-diabetes, but better with dietary changes) - Past Surgical History Past Surgical History: Yes: Hysterectomy Additional Surgical History: pelvic laparoscopy (LN dissection per pt) - Alcohol/Substance Use Hx Alcohol Use: Yes (rare sangria) History of Substance Use: reports: None - Smoking History Smoking history: Never smoked Have you smoked in the past 12 months: No Home Medications - Allergies Allergies/Adverse Reactions: Allergies Allergy/AdvReac Type Severity Reaction Status Date / Time No Known Allergies Allergy Verified 08/23/16 02:52 - Home Medications Home Medications: Ambulatory Orders Albuterol Sulfate Inhaler - [Ventolin HFA Inhaler -] 1 - 2 puff IN PRN 08/23/16 Aspirin [Aspirin EC] PO DAILY 08/23/16 Famotidine 20 mg PO BID 08/23/16 Fluticasone/Salmeterol [Advair 250-50 Diskus] IN DAILY PRN 08/23/16 Hydrochlorothiazide 50 mg PO DAILY 08/23/16 Ibuprofen PO PRN PRN 08/23/16 Metoprolol Succinate [Toprol Xl] 50 mg PO DAILY 08/23/16 Montelukast Na [Singulair -] 10 mg PO PRN 08/23/16 Family Disease History - Family Disease History Family Disease History: Diabetes: Father ( late 60s of heart attack, had finger amputations sec to DM/smoking), Heart Disease: Father, [place]: Mother ( breast at 31, of) Review of Systems - Review of Systems Constitutional: reports: Malaise. denies: Chills, Fever, Night Sweats, Unintentional Wgt. Loss, Weakness Eyes: reports: No Symptoms HENT: reports: No Symptoms Neck: reports: No Symptoms Cardiovascular: reports: No Symptoms Respiratory: reports: No Symptoms Gastrointestinal: reports: Abdominal Pain, Indigestion, Nausea. denies: Constipation, Diarrhea, Melena, Rectal Bleeding, Vomiting Blood Genitourinary: reports: No Symptoms Breasts: reports: No Symptoms Reported Musculoskeletal: reports: No Symptoms Integumentary: reports: No Symptoms Neurological: reports: No Symptoms Endocrine: reports: No Symptoms Hematology/Lymphatic: reports: No Symptoms Psychiatric: reports: No Symptoms Physical Exam Vital Sings: Vital Signs Temperature 98.7 F 08/24/16 10:00 Pulse Rate 89 08/24/16 10:00 Respiratory Rate 20 08/24/16 10:00 Blood Pressure 121/62 08/24/16 10:00 O2 Sat by Pulse Oximetry (%) 97 08/23/16 15:02 Constitutional: Yes: No Distress, Calm Eyes: Yes: Conjunctiva Clear, EOM Intact HENT: Yes: Atraumatic, Normocephalic Neck: Yes: Supple, Trachea Midline Cardiovascular: Yes: Regular Rate and Rhythm Respiratory: Yes: CTA Bilaterally. No: Accessory Muscle Use, Rales, Rhonchi, Stridor, Tachypnea, Wheezes ...Inspection: Yes: WNL ...Clubbing: No Gastrointestinal: Yes: Normal Bowel Sounds, Soft, Tenderness. No: Palpable Mass , Pulsatile Mass Renal/: Yes: WNL Musculoskeletal: Yes: WNL Extremities: Yes: WNL Edema: No Peripheral Pulses WNL: Yes Integumentary: Yes: WNL Neurological: Yes: WNL, Alert, Oriented ...Motor Strength: WNL Psychiatric: Yes: WNL, Alert, Oriented Labs: CBC, BMP 08/24/16 06:55 08/24/16 06:55 Imaging - Results Cat Scan: Report Reviewed, Image Reviewed Problem List - Problems (1) Acute cholecystitis Code(s): K81.0 - ACUTE CHOLECYSTITIS (2) Asthma Code(s): J45.909 - UNSPECIFIED ASTHMA, UNCOMPLICATED (3) Hypertension Code(s): I10 - ESSENTIAL (PRIMARY) HYPERTENSION (4) Hypokalemia, gastrointestinal losses Code(s): E87.6 - HYPOKALEMIA (5) Obesity (BMI 30.0-34.9) Code(s): E66.9 - OBESITY, UNSPECIFIED Assessment/Plan BD TX PRN Symbicort No need for systemic steroids O2 as needed Outpatient PFTs VTE prophylaxis Continued smoking abstinence counseled There is no Pulmonary contraindication for OR. Will follow. Dr Mcneil
[2016-08-24] MEDS ORDERED: POTASSIUM CHLORIDE ORAL LIQUID 20 MEQ/15 ML PO ONE ×2 (12:01→15:00)
[2016-08-24] MEDS ORDERED: POTASSIUM CHLORIDE TABS 20 MEQ TABLET.ER (FP) PO ONE ×2 (12:03→14:00)
[2016-08-24] MEDS: SODIUM CHLORIDE 0.45% 1,000 ML with POTASSIUM CHLORIDE 20 MEQ IV SCH (13:37)
--- NOTE | 2016-08-24 14:35 | CONSULT ---
Consult Consult Specialty:: infectious diseases Reason for Consultation:: choleycysitits ,abd pain,fever - History of Present Illness Chief Complaint: abd pain History of Present Illness: 70yo Female Patient w/ PmHx: HTN, Cervical Ca, Hysterectomy, presents to ED c/o worsening abdominal pain for past 3 days. Associated nausea. patient had continuous abd pain if she ate or she was empty stomach patient took over the counter medication which did not relieve the pain patient came to the er and found to have leukocytosis and low grade fever clinically patient had symptoms of choleycystitis - History Source History Provided By: Patient, Family Member Limitations to Obtaining History: No Limitations - Past Medical History Cardio/Vascular: Yes: HTN, NM (per patient, her EKG showed an old infarction, but she was never aware of one) Pulmonary: Yes: Asthma (uses inhaler few times a week, lately using Advair diskus daily instead of prn). No: O2 Dependent, Previously Intubated Gastrointestinal: Yes: Constipation ...: No Musculoskeletal: Yes: Osteoarthritis (mostly in knees) Endocrine: Yes: Diabetes Mellitus (previous dx of pre-diabetes, but better with dietary changes) - Past Surgical History Past Surgical History: Yes: Hysterectomy Additional Surgical History: pelvic laparoscopy (LN dissection per pt) - Alcohol/Substance Use Hx Alcohol Use: Yes (rare sangria) History of Substance Use: reports: None - Smoking History Smoking history: Never smoked Have you smoked in the past 12 months: No Home Medications - Allergies Allergies/Adverse Reactions: Allergies Allergy/AdvReac Type Severity Reaction Status Date / Time No Known Allergies Allergy Verified 08/23/16 02:52 - Home Medications Home Medications: Ambulatory Orders Albuterol Sulfate Inhaler - [Ventolin HFA Inhaler -] 1 - 2 puff IN PRN 08/23/16 Aspirin [Aspirin EC] PO DAILY 08/23/16 Famotidine 20 mg PO BID 08/23/16 Fluticasone/Salmeterol [Advair 250-50 Diskus] IN DAILY PRN 08/23/16 Hydrochlorothiazide 50 mg PO DAILY 08/23/16 Ibuprofen PO PRN PRN 08/23/16 Metoprolol Succinate [Toprol Xl] 50 mg PO DAILY 08/23/16 Montelukast Na [Singulair -] 10 mg PO PRN 08/23/16 Family Disease History - Family Disease History Family Disease History: Diabetes: Father ( late 60s of heart attack, had finger amputations sec to DM/smoking), Heart Disease: Father, [place]: Mother ( breast at 31, of) Review of Systems - Review of Systems Constitutional: reports: Fever Eyes: reports: No Symptoms HENT: reports: No Symptoms Neck: reports: No Symptoms Cardiovascular: reports: No Symptoms Respiratory: reports: No Symptoms Gastrointestinal: reports: Abdominal Pain (ruq), Nausea, Vomiting Genitourinary: reports: No Symptoms Musculoskeletal: reports: No Symptoms Integumentary: reports: No Symptoms Neurological: reports: No Symptoms Endocrine: reports: No Symptoms Hematology/Lymphatic: reports: No Symptoms Psychiatric: reports: No Symptoms Physical Exam Vital Signs: Vital Signs Temperature 98.3 F 08/24/16 14:00 Pulse Rate 85 08/24/16 14:00 Respiratory Rate 22 08/24/16 14:00 Blood Pressure 121/62 08/24/16 10:00 O2 Sat by Pulse Oximetry (%) 97 08/23/16 15:02 Constitutional: Yes: No Distress, Calm Neck: Yes: Supple Cardiovascular: Yes: Regular Rate and Rhythm Respiratory: Yes: Regular, CTA Bilaterally Gastrointestinal: Yes: Normal Bowel Sounds, Soft Musculoskeletal: Yes: WNL Extremities: Yes: WNL Neurological: Yes: Alert, Oriented Psychiatric: Yes: Alert, Oriented Labs: CBC, BMP 08/24/16 06:55 08/24/16 06:55 Imaging - Results Chest X-ray: Report Reviewed, Image Reviewed Cat Scan: Report Reviewed, Image Reviewed MRI: Report Reviewed, Image Reviewed Assessment/Plan Problem List - Problems (1) Acute cholecystitis Code(s): K81.0 - ACUTE CHOLECYSTITIS (2) Lung mass Code(s): R91.8 - OTHER NONSPECIFIC AB patient has been evaluated by surgery and GI plan continue as per gi continue lisa
[2016-08-24] MEDS: BUDESONIDE/FORMETEROL FUMARATE 160/4.5 mcg INHALER IH SCH ×2 (15:14→21:17)
--- NOTE | 2016-08-24 16:03 | PN ---
Progress Note, Physician Chief Complaint: abdominal pain - none currently History of Present Illness: Pt seen and examined in bed, resting comfortably. No complaints of pain, has been OOB and ambulated. Voiding, urine has gotten superintendent police per pt. + BM (hard) this morning. - Current Medication List Current Medications: Active Medications Albuterol/Ipratropium (Duoneb -) 1 amp NEB Q4H PRN PRN Reason: SHORTNESS OF BREATH Budesonide/Formoterol Fumarate (Symbicort 160/4.5mcg -) 2 puff IH BID [facility] Last Admin: 08/24/16 15:14 Dose: Not Given Hydromorphone HCl (Dilaudid Injection -) 1 mg IVPB Q3H PRN PRN Reason: PAIN Pantoprazole Sodium (Protonix 40mg Ivpb (Pre-Docked)) 100 mls @ 200 mls/hr IVPB DAILY [facility] Last Admin: 08/24/16 10:16 Dose: 200 mls/hr Potassium Chloride 20 meq/ (Sodium Chloride) 1,010 mls @ 75 mls/hr IV Q13H [facility] Last Admin: 08/24/16 13:37 Dose: 75 mls/hr Metoprolol Succinate (Toprol Xl -) 50 mg PO DAILY [facility] Last Admin: 08/24/16 10:15 Dose: 50 mg Piperacillin Sod/Tazobactam Sod (Zosyn 3.375gm Ivpb (Pre-Docked)) 3.375 gm IVPB Q8H-IV HI PRN Reason: Protocol Last Admin: 08/24/16 11:07 Dose: 3.375 gm - Objective Vital Signs: Vital Signs Temperature 98.3 F 08/24/16 14:00 Pulse Rate 85 08/24/16 14:00 Respiratory Rate 22 08/24/16 14:00 Blood Pressure 121/62 08/24/16 10:00 O2 Sat by Pulse Oximetry (%) 97 08/23/16 15:02 Low grade temp 99.8 this morning, normal at next check. Constitutional: Yes: No Distress, Calm, Obese Cardiovascular: Yes: Regular Rate and Rhythm. No: Murmur Respiratory: Yes: Regular, CTA Bilaterally. No: Wheezes Gastrointestinal: Yes: Soft, Abdomen, Obese. No: Tenderness Extremities: Yes: Other (SCDs in place bilaterally) Additional Findings/Remarks: IV fluids and antibiotics continued overnight. K+ this morning low at 2.9, IV replacement started. MRCP was negative for biliary dilation or choledocholithiasis. Labs: CBC, BMP 08/24/16 06:55 08/24/16 06:55 WBC and LFTs trending down. K+ still low, CO2 improving. - ....Imaging Cat Scan: Report Reviewed (chest CT does not show any lung masses), Image Reviewed MRI: Report Reviewed (stones in GB but not ducts, no dilation) Problem List - Problems (1) Calculus of gallbladder with biliary obstruction but without cholecystitis Assessment/Plan: MRCP does show minimal pericholecystic fluid, but stone in neck/cystic duct area may have returned to gallbladder as no obstructive filling defect is noted. Overall picture is consistent with cholecystitis with improving labs, except for potassium, which remains low precluding operation until corrected. Given no pain or tenderness, will allow clear liquids today and replace K+ with oral supplementation after 20mEq given IVPB. Recheck labs tonight and in am, with further correction tonight if needed, and keep K+ in maintenance fluids. Laparoscopic possible open cholecystectomy is scheduled for 11am tomorrow. Pt and family aware. Discussed with Dr. Cavanaugh this morning. Pt to continue ambulating/OOB. Recommend starting incentive spirometry now to continue postop. Code(s): K80.21 - CALCULUS OF GALLBLADDER W/O CHOLECYSTITIS WITH OBSTRUCTION (2) Hypertension Code(s): I10 - ESSENTIAL (PRIMARY) HYPERTENSION (3) Obesity (BMI 30.0-34.9) Code(s): E66.9 - OBESITY, UNSPECIFIED (4) Asthma Code(s): J45.909 - UNSPECIFIED ASTHMA, UNCOMPLICATED (5) Hypokalemia, gastrointestinal losses Assessment/Plan: K+ still low - replacing today and rechecking tonight and in am Code(s): E87.6 - HYPOKALEMIA (6) Dehydration, mild Assessment/Plan: improved - urine is superintendent police, labs improving; pt ok for clears today, NPO after midnight for OR except meds w/sips Code(s): E86.0 - DEHYDRATION
--- NOTE | 2016-08-24 18:47 | PN ---
Progress Note, Physician History of Present Illness: NO NEW COMPLAINTS - Current Medication List Current Medications: Active Medications Albuterol/Ipratropium (Duoneb -) 1 amp NEB Q4H PRN PRN Reason: SHORTNESS OF BREATH Budesonide/Formoterol Fumarate (Symbicort 160/4.5mcg -) 2 puff IH BID [facility] Last Admin: 08/24/16 15:14 Dose: Not Given Hydromorphone HCl (Dilaudid Injection -) 1 mg IVPB Q3H PRN PRN Reason: PAIN Pantoprazole Sodium (Protonix 40mg Ivpb (Pre-Docked)) 100 mls @ 200 mls/hr IVPB DAILY [facility] Last Admin: 08/24/16 10:16 Dose: 200 mls/hr Potassium Chloride 20 meq/ (Sodium Chloride) 1,010 mls @ 75 mls/hr IV Q13H HI Last Admin: 08/24/16 13:37 Dose: 75 mls/hr Metoprolol Succinate (Toprol Xl -) 50 mg PO DAILY [facility] Last Admin: 08/24/16 10:15 Dose: 50 mg Piperacillin Sod/Tazobactam Sod (Zosyn 3.375gm Ivpb (Pre-Docked)) 3.375 gm IVPB Q8H-IV HI PRN Reason: Protocol Last Admin: 08/24/16 17:37 Dose: 3.375 gm - Objective Vital Signs: Vital Signs Temperature 98.3 F 08/24/16 14:00 Pulse Rate 85 08/24/16 14:00 Respiratory Rate 22 08/24/16 14:00 Blood Pressure 121/62 08/24/16 10:00 O2 Sat by Pulse Oximetry (%) 97 08/23/16 15:02 Constitutional: Yes: No Distress HENT: Yes: Atraumatic Neck: Yes: Supple Cardiovascular: Yes: Regular Rate and Rhythm Respiratory: Yes: CTA Bilaterally Gastrointestinal: Yes: Normal Bowel Sounds Extremities: Yes: WNL Neurological: Yes: Alert, Oriented Labs: CBC, BMP 08/24/16 06:55 Problem List - Problems (1) Acute cholecystitis Assessment/Plan: ON CLEAR LIQUID DIET IVF, IV ABX GI AND SURGERY CONSULT OR IN AM D/W SURGERY Code(s): K81.0 - ACUTE CHOLECYSTITIS (2) Asthma Assessment/Plan: STABLE CONTINUE HOME MEDS Code(s): J45.909 - UNSPECIFIED ASTHMA, UNCOMPLICATED (3) Hypertension Assessment/Plan: ON MEDS STABLE Code(s): I10 - ESSENTIAL (PRIMARY) HYPERTENSION (4) Hypokalemia, gastrointestinal losses Assessment/Plan: REPLACE K FU LABS Code(s): E87.6 - HYPOKALEMIA
[2016-08-24 19:09] LABS: CALCIUM 9.2 mg/dL (8.5-10.1); COCKROFT - GAULT 134.776; CREATININE 0.5 mg/dL (0.55-1.02)
[2016-08-25] MEDS: PIPERACILLIN/TAZOB 3.375 GM/50 ML PRE-DOCKED IVPB SCH ×3 (02:04→17:37)
[2016-08-25] MEDS: SODIUM CHLORIDE 0.45% 1,000 ML with POTASSIUM CHLORIDE 20 MEQ IV SCH (02:07)
[2016-08-25 07:23] LABS: BASOPHIL 0.2 % (0-2.0); EOSINOPHIL 4.6 % (0-4.5); MCH 29.7 pg (25.7-33.7); MCHC 34.5 g/dl (32.0-36.0); MEAN CELL VOLUME 86.1 fl (80-96); MEAN PLT VOLUME 7.6 fl (7.5-11.1); NEUTROPHILS 75.4 % (42.8-82.8); PLATELET COUNT 200 K/MM3 (134-434); RDW 13.9 % (11.6-15.6); WHITE BLOOD COUNT 6.3 K/mm3 (4.0-10.0)
[2016-08-25 08:42] LABS: ALK PHOS 174 U/L (45-117); ANION GAP 9 (8-16); CALCIUM 9.1 mg/dL (8.5-10.1); CO2 27 mmol/L (21-32); COCKROFT - GAULT 105.995; CREATININE 0.6 mg/dL (0.55-1.02); GLUCOSE,RANDOM 129 mg/dL (74-106); SGOT/AST 36 U/L (15-37); SGPT/ALT 101 U/L (12-78); TOT PROT 6.2 g/dl (6.4-8.2)
[2016-08-25] MEDS ORDERED: PT OWN MED DRAWER 7, Y5N ONE (09:34)
[2016-08-25] MEDS: BUDESONIDE/FORMETEROL FUMARATE 160/4.5 mcg INHALER IH SCH ×2 (09:36→22:22)
[2016-08-25] MEDS: METOPROLOL SUCCINATE 50 MG TAB.SR.24H (FP) PO SCH (09:37)
[2016-08-25] MEDS: PANTOPRAZOLE SODIUM 100 ML IVPB SCH (09:37)
[2016-08-25] MEDS ORDERED: PROPOFOL 20 ML ONE ×3 (11:02→11:51)
[2016-08-25] MEDS ORDERED: ROCURONIUM BROMIDE 50 MG/5 ML VIAL ONE (11:02)
[2016-08-25] MEDS ORDERED: SUCCINYLCHOLINE CHLORIDE 200 MG/10 ML VIAL ONE ×2 (11:02→11:51)
--- NOTE | 2016-08-25 11:12 | PN ---
Progress Note, Physician Chief Complaint: abdominal pain - none currently History of Present Illness: Pt seen and examined in holding area preoperatively. No complaints. Tolerated clears yesterday. Reviewed R/B/A of surgery and pt signed consent form for lap wood possible open. Family at bedside. - Current Medication List Current Medications: Active Medications Albuterol/Ipratropium (Duoneb -) 1 amp NEB Q4H PRN PRN Reason: SHORTNESS OF BREATH Budesonide/Formoterol Fumarate (Symbicort 160/4.5mcg -) 2 puff IH BID [facility] Last Admin: 08/25/16 09:36 Dose: 2 puff Hydromorphone HCl (Dilaudid Injection -) 1 mg IVPB Q3H PRN PRN Reason: PAIN Pantoprazole Sodium (Protonix 40mg Ivpb (Pre-Docked)) 100 mls @ 200 mls/hr IVPB DAILY [facility] Last Admin: 08/25/16 09:37 Dose: 200 mls/hr Potassium Chloride 20 meq/ (Sodium Chloride) 1,010 mls @ 75 mls/hr IV Q13H HI Last Admin: 08/25/16 02:07 Dose: 75 mls/hr Metoprolol Succinate (Toprol Xl -) 50 mg PO DAILY [facility] Last Admin: 08/25/16 09:37 Dose: 50 mg Piperacillin Sod/Tazobactam Sod (Zosyn 3.375gm Ivpb (Pre-Docked)) 3.375 gm IVPB Q8H-IV HI PRN Reason: Protocol Last Admin: 08/25/16 09:37 Dose: 3.375 gm - Objective Vital Signs: Vital Signs Temperature 99.2 F 08/25/16 08:39 Pulse Rate 77 08/25/16 08:39 Respiratory Rate 20 08/25/16 10:00 Blood Pressure 121/68 08/25/16 08:39 O2 Sat by Pulse Oximetry (%) 94 L 08/25/16 10:00 Constitutional: Yes: No Distress, Calm Cardiovascular: Yes: Regular Rate and Rhythm. No: Murmur Respiratory: Yes: Regular, CTA Bilaterally. No: Wheezes Gastrointestinal: Yes: Soft, Abdomen, Obese. No: Tenderness Labs: CBC, BMP 08/25/16 05:10 08/25/16 05:10 K+ 4.1 last night, 3.5 this morning. Problem List - Problems (1) Calculus of gallbladder with biliary obstruction but without cholecystitis Assessment/Plan: to OR now for laparoscopic cholecystectomy plan to resume po postop, pain meds prn, complete perioperative antibiotics within 24 hours DVT prophylaxis to continue Code(s): K80.21 - CALCULUS OF GALLBLADDER W/O CHOLECYSTITIS WITH OBSTRUCTION (2) Hypertension Code(s): I10 - ESSENTIAL (PRIMARY) HYPERTENSION (3) Obesity (BMI 30.0-34.9) Code(s): E66.9 - OBESITY, UNSPECIFIED (4) Asthma Code(s): J45.909 - UNSPECIFIED ASTHMA, UNCOMPLICATED (5) Hypokalemia, gastrointestinal losses Assessment/Plan: resolved Code(s): E87.6 - HYPOKALEMIA (6) Dehydration, mild Assessment/Plan: resolved Code(s): E86.0 - DEHYDRATION
--- NOTE | 2016-08-25 11:21 | PN ---
Progress Note, Physician History of Present Illness: 70yo Female Patient w/ PmHx: HTN, Cervical Ca, Hysterectomy, presents to ED c/o worsening abdominal pain for past 3 days. Associated nausea. Patient states when she eats her abdomen hurts, and when she does not eat pain is worse. OTC Agnes [place] with no relief. Last meal 6-7pm last night. Patient denies any other complaints at this time. PMH Asthma COPD diet controlled DM HTN Osteoporosis Normal MIBI [facility]09[facility] 2017 mild carotid plaque 2017 - Current Medication List Current Medications: Active Medications Albuterol/Ipratropium (Duoneb -) 1 amp NEB Q4H PRN PRN Reason: SHORTNESS OF BREATH Budesonide/Formoterol Fumarate (Symbicort 160/4.5mcg -) 2 puff IH BID [facility] Last Admin: 08/25/16 09:36 Dose: 2 puff Hydromorphone HCl (Dilaudid Injection -) 1 mg IVPB Q3H PRN PRN Reason: PAIN Pantoprazole Sodium (Protonix 40mg Ivpb (Pre-Docked)) 100 mls @ 200 mls/hr IVPB DAILY [facility] Last Admin: 08/25/16 09:37 Dose: 200 mls/hr Potassium Chloride 20 meq/ (Sodium Chloride) 1,010 mls @ 75 mls/hr IV Q13H HI Last Admin: 08/25/16 02:07 Dose: 75 mls/hr Metoprolol Succinate (Toprol Xl -) 50 mg PO DAILY [facility] Last Admin: 08/25/16 09:37 Dose: 50 mg Piperacillin Sod/Tazobactam Sod (Zosyn 3.375gm Ivpb (Pre-Docked)) 3.375 gm IVPB Q8H-IV HI PRN Reason: Protocol Last Admin: 08/25/16 09:37 Dose: 3.375 gm - Objective Vital Signs: Vital Signs Temperature 99.2 F 08/25/16 08:39 Pulse Rate 77 08/25/16 08:39 Respiratory Rate 20 08/25/16 10:00 Blood Pressure 121/68 08/25/16 08:39 O2 Sat by Pulse Oximetry (%) 94 L 08/25/16 10:00 Eyes: Yes: WNL, Conjunctiva Clear, EOM Intact HENT: Yes: WNL, Atraumatic, Normocephalic Neck: Yes: WNL, Supple, Trachea Midline Cardiovascular: Yes: WNL, Regular Rate and Rhythm Respiratory: Yes: WNL, Regular, CTA Bilaterally Gastrointestinal: Yes: Tenderness Genitourinary: Yes: WNL Musculoskeletal: Yes: WNL Extremities: Yes: WNL Edema: No Integumentary: Yes: WNL Neurological: Yes: WNL, Alert, Oriented ...Motor Strength: WNL Psychiatric: Yes: WNL Labs: CBC, BMP 08/25/16 05:10 08/25/16 05:10 Problem List - Problems (1) Acute cholecystitis Code(s): K81.0 - ACUTE CHOLECYSTITIS (2) Asthma Code(s): J45.909 - UNSPECIFIED ASTHMA, UNCOMPLICATED (3) Calculus of gallbladder with biliary obstruction but without cholecystitis Code(s): K80.21 - CALCULUS OF GALLBLADDER W/O CHOLECYSTITIS WITH OBSTRUCTION (4) Dehydration, mild Code(s): E86.0 - DEHYDRATION (5) Hypertension Code(s): I10 - ESSENTIAL (PRIMARY) HYPERTENSION (6) Hypokalemia, gastrointestinal losses Code(s): E87.6 - HYPOKALEMIA (7) Lung mass Code(s): R91.8 - OTHER NONSPECIFIC ABNORMAL FINDING OF LUNG FIELD (8) Obesity (BMI 30.0-34.9) Code(s): E66.9 - OBESITY, UNSPECIFIED Assessment/Plan Acute cholecystatis Hypokalemia Asthma COPD diet controlled DM HTN Osteoporosis Normal [facility]IBI [facility] 2017 mild carotid plaque 2017 Plan; suplement K Patient is cleared for GI w/u surgery from cardiac point of view.
[2016-08-25] MEDS ORDERED: ePHEDrine SULFATE 50 MG/1 ML AMPULE ONE ×2 (11:50→12:47)
[2016-08-25] MEDS ORDERED: DESFLURANE GAS 240 ML BOTTLE IH ONE (11:54)
[2016-08-25] MEDS ORDERED: PHENYLEPHRINE HCL 10 MG/1 ML SINGLE DOSE VIAL ONE (12:45)
[2016-08-25] MEDS ORDERED: SODIUM CHLORIDE 0.9% P/F 10 ML VIAL IJ ONE (12:47)
[2016-08-25] MEDS ORDERED: LIDOCAINE HCL 1%, 10 MG/ML (20ML VIAL) ONE (12:56)
[2016-08-25] MEDS ORDERED: BUPIVACAINE HCL/PF 0.5% (5MG/ML) 10 ML VIAL ONE (12:56)
[2016-08-25] MEDS ORDERED: BUPIVACAINE HCL/PF 0.5% (5MG/ML) 10 ML VIAL IJ ONE ×2 (13:10→14:21)
[2016-08-25] MEDS ORDERED: LIDOCAINE HCL 1%, 10 MG/ML (50 mL VIAL) IJ ONE ×2 (13:10→14:21)
[2016-08-25] MEDS ORDERED: GLYCOPYRROLATE 0.2 MG/1 ML VIAL ONE (13:25)
[2016-08-25] MEDS ORDERED: NEOSTIGMINE METHYLSULFATE 0.5 MG/ML - 10 ML MDV ONE (13:26)
--- NOTE | 2016-08-25 14:00 | PN ---
Progress Note, Physician History of Present Illness: s/p surgery - Current Medication List Current Medications: Active Medications Albuterol/Ipratropium (Duoneb -) 1 amp NEB Q4H PRN PRN Reason: SHORTNESS OF BREATH Budesonide/Formoterol Fumarate (Symbicort 160/4.5mcg -) 2 puff IH BID [facility] Last Admin: 08/25/16 09:36 Dose: 2 puff Hydromorphone HCl (Dilaudid Injection -) 1 mg IVPB Q3H PRN PRN Reason: PAIN Pantoprazole Sodium (Protonix 40mg Ivpb (Pre-Docked)) 100 mls @ 200 mls/hr IVPB DAILY [facility] Last Admin: 08/25/16 09:37 Dose: 200 mls/hr Potassium Chloride 20 meq/ (Sodium Chloride) 1,010 mls @ 75 mls/hr IV Q13H HI Last Admin: 08/25/16 02:07 Dose: 75 mls/hr Metoprolol Succinate (Toprol Xl -) 50 mg PO DAILY [facility] Last Admin: 08/25/16 09:37 Dose: 50 mg Piperacillin Sod/Tazobactam Sod (Zosyn 3.375gm Ivpb (Pre-Docked)) 3.375 gm IVPB Q8H-IV HI PRN Reason: Protocol Last Admin: 08/25/16 09:37 Dose: 3.375 gm - Objective Vital Signs: Vital Signs Temperature 99.2 F 08/25/16 08:39 Pulse Rate 77 08/25/16 08:39 Respiratory Rate 20 08/25/16 10:00 Blood Pressure 121/68 08/25/16 08:39 O2 Sat by Pulse Oximetry (%) 94 L 08/25/16 10:00 Constitutional: Yes: No Distress HENT: Yes: Atraumatic Neck: Yes: Supple Cardiovascular: Yes: Regular Rate and Rhythm Respiratory: Yes: CTA Bilaterally Gastrointestinal: Yes: Hypoactive Bowel Sounds, Tenderness (at the surgery site) Extremities: Yes: WNL Labs: CBC, BMP 08/25/16 05:10 08/25/16 05:10 Problem List - Problems (1) Acute cholecystitis Assessment/Plan: ON CLEAR LIQUID DIET IVF, IV ABX GI AND SURGERY CONSULT OR IN AM D/W SURGERY Code(s): K81.0 - ACUTE CHOLECYSTITIS (2) Asthma Assessment/Plan: STABLE CONTINUE HOME MEDS Code(s): J45.909 - UNSPECIFIED ASTHMA, UNCOMPLICATED (3) Hypertension Assessment/Plan: ON MEDS STABLE Code(s): I10 - ESSENTIAL (PRIMARY) HYPERTENSION (4) Hypokalemia, gastrointestinal losses Assessment/Plan: REPLACE K FU LABS Code(s): E87.6 - HYPOKALEMIA Assessment/Plan 08/23/16 08/23/16 08/23/16 05:10 05:10 08:55 WBC 11.2 H RBC 4.75 Hgb 13.2 Hct 40.5 MCV 85.3 MCHC 32.7 RDW 13.6 Plt Count 254 MPV 7.9 Neutrophils % 90.5 H Lymphocytes % 3.8 L Monocytes % 5.0 Eosinophils % 0.6 Basophils % 0.1 Sodium 143 Potassium 2.6 L* Chloride 102 Carbon Dioxide 32 Anion Gap 9 BUN 14 Creatinine 0.8 Creat Clearance w eGFR > 60 Random Glucose 121 H Calcium 10.2 H Total Bilirubin 2.9 H AST 166 H ALT 205 H Alkaline Phosphatase 245 H Creatine Kinase 108 Troponin I < 0.02 Total Protein 6.8 Albumin 3.6 Total Amylase 48 Lipase 86 Urine Color Dkyellow Urine Appearance Clear Urine pH 7.0 Ur Specific [place] 1.010 Urine Protein Negative Urine Glucose (UA) Negative Urine Ketones Negative Urine Blood Negative Urine Nitrite Negative Urine Bilirubin Negative Urine Urobilinogen 4.0 e.u/dl H Ur Leukocyte Esterase Negative Blood Type Antibody Screen 08/23/16 08/23/16 08/23/16 15:50 15:50 15:50 WBC 13.7 H RBC 4.42 Hgb 12.4 Hct 37.8 MCV 85.4 MCHC 32.9 RDW 13.8 Plt Count 231 MPV 8.1 Neutrophils % 87.6 H Lymphocytes % 6.8 L D Monocytes % 5.1 Eosinophils % 0.3 Basophils % 0.2 Sodium 144 Potassium 3.0 L Chloride 104 Carbon Dioxide 32 Anion Gap 8 BUN 13 Creatinine 0.6 D Creat Clearance w eGFR > 60 Random Glucose 104 Calcium 9.2 Total Bilirubin 2.3 H D AST 124 H D ALT 182 H Alkaline Phosphatase 204 H Creatine Kinase Troponin I Total Protein 6.1 L Albumin 3.1 L Total Amylase Lipase Urine Color Urine Appearance Urine pH Ur Specific [place] Urine Protein Urine Glucose (UA) Urine Ketones Urine Blood Urine Nitrite Urine Bilirubin Urine Urobilinogen Ur Leukocyte Esterase Blood Type O POSITIVE Antibody Screen Negative
[2016-08-25] MEDS ORDERED: ONDANSETRON 4 MG/2 ML VIAL IVPUSH PRN (14:46)
[2016-08-25] MEDS ORDERED: PROMETHAZINE HCL 25 MG/1 ML VIAL IVPUSH PRN (14:46)
--- NOTE | 2016-08-25 14:48 | PN ---
Progress Note, Physician History of Present Illness: stable no new issues - Current Medication List Current Medications: Active Medications Albuterol/Ipratropium (Duoneb -) 1 amp NEB Q4H PRN PRN Reason: SHORTNESS OF BREATH Budesonide/Formoterol Fumarate (Symbicort 160/4.5mcg -) 2 puff IH BID [facility] Last Admin: 08/25/16 09:36 Dose: 2 puff Hydromorphone HCl (Dilaudid Injection -) 1 mg IVPB Q3H PRN PRN Reason: PAIN Pantoprazole Sodium (Protonix 40mg Ivpb (Pre-Docked)) 100 mls @ 200 mls/hr IVPB DAILY [facility] Last Admin: 08/25/16 09:37 Dose: 200 mls/hr Potassium Chloride 20 meq/ (Sodium Chloride) 1,010 mls @ 75 mls/hr IV Q13H HI Last Admin: 08/25/16 02:07 Dose: 75 mls/hr Metoprolol Succinate (Toprol Xl -) 50 mg PO DAILY [facility] Last Admin: 08/25/16 09:37 Dose: 50 mg Piperacillin Sod/Tazobactam Sod (Zosyn 3.375gm Ivpb (Pre-Docked)) 3.375 gm IVPB Q8H-IV HI PRN Reason: Protocol Last Admin: 08/25/16 09:37 Dose: 3.375 gm - Objective Vital Signs: Vital Signs Temperature 99.2 F 08/25/16 08:39 Pulse Rate 77 08/25/16 08:39 Respiratory Rate 20 08/25/16 10:00 Blood Pressure 121/68 08/25/16 08:39 O2 Sat by Pulse Oximetry (%) 94 L 08/25/16 10:00 Constitutional: Yes: No Distress, Calm Cardiovascular: Yes: Regular Rate and Rhythm Respiratory: Yes: Regular, CTA Bilaterally Gastrointestinal: Yes: Normal Bowel Sounds, Soft Musculoskeletal: Yes: WNL Extremities: Yes: WNL Neurological: Yes: Alert, Oriented Psychiatric: Yes: Alert Labs: CBC, BMP 08/25/16 05:10 08/25/16 05:10 Assessment/Plan Problem List - Problems (1) Acute cholecystitis Code(s): K81.0 - ACUTE CHOLECYSTITIS (2) Lung mass Code(s): R91.8 - OTHER NONSPECIFIC AB patient has been evaluated by surgery and GI plan continue as per gi continue lisa patient for or today
--- NOTE | 2016-08-25 15:04 | OP ---
Operative Note - Note: Operative Date: 08/25/16 Pre-Operative Diagnosis: acute cholecystitis with obstruction Operation: laparoscopic cholecystectomy Findings: distended gallbladder with hydrops, large cystic duct, critical view identified Post-Operative Diagnosis: Same as Pre-op Surgeon: Kevin Whitfield Forensic Pathologist: Nawaf Wilson Anesthesiologist/GOLD BUYER: Shahid Martínez Anesthesia: General, Local (20ml 1% lidocaine + 0.5% marcaine) Specimens Removed: gallbladder Estimated Blood Loss (mls): 10 Fluid Volume Replaced (mls): 1,500 (crystalloid) Operative Report Dictated: Yes
[2016-08-25] MEDS ORDERED: ACETAMINOPHEN WITH CODEINE 300MG/30MG TABLET PO PRN (15:12)
[2016-08-25] MEDS ORDERED: HYDROmorphone HCL CARPU-JECT 1 MG/1 ML DISP.SYRIN IVPB PRN (15:19)
[2016-08-25] MEDS: LACTATED RINGERS SOLUTION 1,000 ML IV SCH (16:47)
[2016-08-25] MEDS: ACETAMINOPHEN WITH CODEINE 300MG/30MG TABLET PO PRN (17:37)
[2016-08-25] MEDS: DOCUSATE SODIUM 100 MG CAPSULE (FP) PO SCH (22:22)
[2016-08-26] MEDS: ACETAMINOPHEN WITH CODEINE 300MG/30MG TABLET PO PRN ×3 (02:22→21:44)
[2016-08-26] MEDS: PIPERACILLIN/TAZOB 3.375 GM/50 ML PRE-DOCKED IVPB SCH ×3 (02:44→17:21)
[2016-08-26] MEDS: LACTATED RINGERS SOLUTION 1,000 ML IV SCH (06:45)
[2016-08-26] MEDS: BUDESONIDE/FORMETEROL FUMARATE 160/4.5 mcg INHALER IH SCH ×2 (09:34→21:42)
[2016-08-26] MEDS: DOCUSATE SODIUM 100 MG CAPSULE (FP) PO SCH ×2 (09:34→21:42)
[2016-08-26] MEDS: PANTOPRAZOLE SODIUM 100 ML IVPB SCH (09:34)
[2016-08-26] MEDS: METOPROLOL SUCCINATE 50 MG TAB.SR.24H (FP) PO SCH (09:34)
--- NOTE | 2016-08-26 09:52 | PN ---
Progress Note (short form) - Note Progress Note: Post op day#1.S/P Lap cholecystectomy under GA uneventful.Patient stable.No any anesthesia related problem.Patient Dc from the anesthesia care.
--- NOTE | 2016-08-26 10:11 | PN ---
Progress Note (short form) - Note Progress Note: Breathing feels OK. No CP or SOB. Abdominal wall soreness. Tolerating some PO intake. Intake & Output 08/23/16 08/24/16 08/25/16 08/26/16 23:59 23:59 23:59 23:59 Intake Total 850 3162.5 3020 Output Total 260 Balance 850 3162.5 2760 Weight 183 lb 177 lb 4 oz 167 lb 6 oz 175 lb Last Vital Signs Temp Pulse Resp BP Pulse Ox 97.6 F 71 20 118/75 95 08/26/16 08:00 08/26/16 08:00 08/26/16 08:00 08/26/16 08:00 08/25/16 21:00 Active Medications Acetaminophen/Codeine Phosphate (Tylenol # 3 -) 1 tab PO Q6H PRN PRN Reason: PAIN 1-5 Last Admin: 08/26/16 02:22 Dose: 1 tab Acetaminophen/Codeine Phosphate (Tylenol # 3 -) 2 tab PO Q6H PRN PRN Reason: PAIN 6-10 Albuterol/Ipratropium (Duoneb -) 1 amp NEB Q4H PRN PRN Reason: SHORTNESS OF BREATH Budesonide/Formoterol Fumarate (Symbicort 160/4.5mcg -) 2 puff IH BID [facility] Last Admin: 08/26/16 09:34 Dose: 2 puff Docusate Sodium (Colace -) 100 mg PO BID [facility] Last Admin: 08/26/16 09:34 Dose: 100 mg Fentanyl (Sublimaze Injection -) 50 mcg IVPUSH [id number] PRN PRN Reason: PAIN Stop: 08/28/16 14:47 Hydromorphone HCl (Dilaudid Injection -) 1 mg IVPB Q3H PRN PRN Reason: SEVERE PAIN Pantoprazole Sodium (Protonix 40mg Ivpb (Pre-Docked)) 100 mls @ 200 mls/hr IVPB DAILY [facility] Last Admin: 08/26/16 09:34 Dose: 200 mls/hr Potassium Chloride 20 meq/ (Sodium Chloride) 1,010 mls @ 75 mls/hr IV Q13H [facility] Last Admin: 08/25/16 02:07 Dose: 75 mls/hr Lactated Ringer's (Lactated Ringers Solution) 1,000 mls @ 125 mls/hr IV ASDIR [facility] Last Admin: 08/26/16 06:45 Dose: 125 mls/hr Metoprolol Succinate (Toprol Xl -) 50 mg PO DAILY [facility] Last Admin: 08/26/16 09:34 Dose: 50 mg Piperacillin Sod/Tazobactam Sod (Zosyn 3.375gm Ivpb (Pre-Docked)) 3.375 gm IVPB Q8H-IV HI PRN Reason: Protocol Last Admin: 08/26/16 09:34 Dose: 3.375 gm Constitutional: Yes: Uncomfortable due to pain Eyes: Yes: Conjunctiva Clear, EOM Intact HENT: Yes: Atraumatic, Normocephalic Neck: Yes: Supple, Trachea Midline Cardiovascular: Yes: Regular Rate and Rhythm Respiratory: Yes: CTA Bilaterally. No: Accessory Muscle Use, Rales, Rhonchi, Stridor, Tachypnea, Wheezes ...Inspection: Yes: WNL ...Clubbing: No Gastrointestinal: Yes: Soft, (+) BS, (+) Tenderness. Renal/: Yes: WNL Musculoskeletal: Yes: WNL Extremities: Yes: WNL Edema: No Peripheral Pulses WNL: Yes Integumentary: Yes: WNL Neurological: Yes: WNL, Alert, Oriented ...Motor Strength: WNL Psychiatric: Yes: WNL, Alert, Oriented Labs: Problem List - Problems (1) Acute cholecystitis Code(s): K81.0 - ACUTE CHOLECYSTITIS (2) Asthma Code(s): J45.909 - UNSPECIFIED ASTHMA, UNCOMPLICATED (3) Hypertension Code(s): I10 - ESSENTIAL (PRIMARY) HYPERTENSION (4) Hypokalemia, gastrointestinal losses Code(s): E87.6 - HYPOKALEMIA (5) Obesity (BMI 30.0-34.9) Code(s): E66.9 - OBESITY, UNSPECIFIED Assessment/Plan BD TX PRN Symbicort No need for systemic steroids O2 as needed Outpatient PFTs VTE prophylaxis PO as tolerated Incentive Spirometry Dr Mcneil Problem List - Problems (1) Acute cholecystitis Code(s): K81.0 - ACUTE CHOLECYSTITIS (2) Asthma Code(s): J45.909 - UNSPECIFIED ASTHMA, UNCOMPLICATED (3) Hypertension Code(s): I10 - ESSENTIAL (PRIMARY) HYPERTENSION (4) Hypokalemia, gastrointestinal losses Code(s): E87.6 - HYPOKALEMIA (5) Obesity (BMI 30.0-34.9) Code(s): E66.9 - OBESITY, UNSPECIFIED
--- NOTE | 2016-08-26 11:10 | PN ---
Progress Note, Physician History of Present Illness: 70yo Female Patient w/ PmHx: HTN, Cervical Ca, Hysterectomy, presents to ED c/o worsening abdominal pain for past 3 days. Associated nausea. Patient states when she eats her abdomen hurts, and when she does not eat pain is worse. OTC Agnes Doland with no relief. Last meal 6-7pm last night. Patient denies any other complaints at this time. PMH Asthma COPD diet controlled DM HTN Osteoporosis Normal MIBI stress [facility] 07[facility]09-2016 [facility] 2017 mild carotid plaque 2017 - Current Medication List Current Medications: Active Medications Acetaminophen/Codeine Phosphate (Tylenol # 3 -) 1 tab PO Q6H PRN PRN Reason: PAIN 1-5 Last Admin: 08/26/16 02:22 Dose: 1 tab Acetaminophen/Codeine Phosphate (Tylenol # 3 -) 2 tab PO Q6H PRN PRN Reason: PAIN 6-10 Albuterol/Ipratropium (Duoneb -) 1 amp NEB Q4H PRN PRN Reason: SHORTNESS OF BREATH Budesonide/Formoterol Fumarate (Symbicort 160/4.5mcg -) 2 puff IH BID [facility] Last Admin: 08/26/16 09:34 Dose: 2 puff Docusate Sodium (Colace -) 100 mg PO BID [facility] Last Admin: 08/26/16 09:34 Dose: 100 mg Fentanyl (Sublimaze Injection -) 50 mcg IVPUSH [id number] PRN PRN Reason: PAIN Stop: 08/28/16 14:47 Hydromorphone HCl (Dilaudid Injection -) 1 mg IVPB Q3H PRN PRN Reason: SEVERE PAIN Pantoprazole Sodium (Protonix 40mg Ivpb (Pre-Docked)) 100 mls @ 200 mls/hr IVPB DAILY [facility] Last Admin: 08/26/16 09:34 Dose: 200 mls/hr Potassium Chloride 20 meq/ (Sodium Chloride) 1,010 mls @ 75 mls/hr IV Q13H [facility] Last Admin: 08/25/16 02:07 Dose: 75 mls/hr Lactated Ringer's (Lactated Ringers Solution) 1,000 mls @ 125 mls/hr IV ASDIR [facility] Last Admin: 08/26/16 06:45 Dose: 125 mls/hr Metoprolol Succinate (Toprol Xl -) 50 mg PO DAILY [facility] Last Admin: 08/26/16 09:34 Dose: 50 mg Piperacillin Sod/Tazobactam Sod (Zosyn 3.375gm Ivpb (Pre-Docked)) 3.375 gm IVPB Q8H-IV HI PRN Reason: Protocol Last Admin: 08/26/16 09:34 Dose: 3.375 gm - Objective Vital Signs: Vital Signs Temperature 97.6 F 08/26/16 08:00 Pulse Rate 71 08/26/16 08:00 Respiratory Rate 20 08/26/16 08:00 Blood Pressure 118/75 08/26/16 08:00 O2 Sat by Pulse Oximetry (%) 95 08/25/16 21:00 Eyes: Yes: WNL, Conjunctiva Clear, EOM Intact HENT: Yes: WNL, Atraumatic, Normocephalic Neck: Yes: WNL, Supple, Trachea Midline Cardiovascular: Yes: WNL, Regular Rate and Rhythm Respiratory: Yes: WNL, Regular, CTA Bilaterally Genitourinary: Yes: WNL Musculoskeletal: Yes: WNL Extremities: Yes: WNL Edema: No Integumentary: Yes: WNL Neurological: Yes: WNL, Alert, Oriented ...Motor Strength: WNL Psychiatric: Yes: WNL Labs: CBC, BMP 08/25/16 05:10 08/25/16 05:10 Problem List - Problems (1) Acute cholecystitis Code(s): K81.0 - ACUTE CHOLECYSTITIS (2) Asthma Code(s): J45.909 - UNSPECIFIED ASTHMA, UNCOMPLICATED (3) Calculus of gallbladder with biliary obstruction but without cholecystitis Code(s): K80.21 - CALCULUS OF GALLBLADDER W/O CHOLECYSTITIS WITH OBSTRUCTION (4) Dehydration, mild Code(s): E86.0 - DEHYDRATION (5) Hypertension Code(s): I10 - ESSENTIAL (PRIMARY) HYPERTENSION (6) Hypokalemia, gastrointestinal losses Code(s): E87.6 - HYPOKALEMIA (7) Lung mass Code(s): R91.8 - OTHER NONSPECIFIC ABNORMAL FINDING OF LUNG FIELD (8) Obesity (BMI 30.0-34.9) Code(s): E66.9 - OBESITY, UNSPECIFIED Assessment/Plan Acute cholecystatis s/p lap choli POD#1 Hypokalemia Asthma COPD diet controlled DM HTN Osteoporosis Normal MIBI stress [facility] on 07[facility]09-2016 [facility] 2017 mild carotid plaque 2017 Plan; cardiac telles stable cont pesent rx
--- NOTE | 2016-08-26 13:51 | PN ---
Progress Note, Physician History of Present Illness: stable no new issues post op says has pain no appetite - Current Medication List Current Medications: Active Medications Acetaminophen/Codeine Phosphate (Tylenol # 3 -) 1 tab PO Q6H PRN PRN Reason: PAIN 1-5 Last Admin: 08/26/16 02:22 Dose: 1 tab Acetaminophen/Codeine Phosphate (Tylenol # 3 -) 2 tab PO Q6H PRN PRN Reason: PAIN 6-10 Last Admin: 08/26/16 12:43 Dose: 2 tab Albuterol/Ipratropium (Duoneb -) 1 amp NEB Q4H PRN PRN Reason: SHORTNESS OF BREATH Budesonide/Formoterol Fumarate (Symbicort 160/4.5mcg -) 2 puff IH BID [facility] Last Admin: 08/26/16 09:34 Dose: 2 puff Docusate Sodium (Colace -) 100 mg PO BID [facility] Last Admin: 08/26/16 09:34 Dose: 100 mg Fentanyl (Sublimaze Injection -) 50 mcg IVPUSH [id number] PRN PRN Reason: PAIN Stop: 08/28/16 14:47 Hydromorphone HCl (Dilaudid Injection -) 1 mg IVPB Q3H PRN PRN Reason: SEVERE PAIN Pantoprazole Sodium (Protonix 40mg Ivpb (Pre-Docked)) 100 mls @ 200 mls/hr IVPB DAILY [facility] Last Admin: 08/26/16 09:34 Dose: 200 mls/hr Potassium Chloride 20 meq/ (Sodium Chloride) 1,010 mls @ 75 mls/hr IV Q13H [facility] Last Admin: 08/25/16 02:07 Dose: 75 mls/hr Lactated Ringer's (Lactated Ringers Solution) 1,000 mls @ 125 mls/hr IV ASDIR [facility] Last Admin: 08/26/16 06:45 Dose: 125 mls/hr Metoprolol Succinate (Toprol Xl -) 50 mg PO DAILY [facility] Last Admin: 08/26/16 09:34 Dose: 50 mg Piperacillin Sod/Tazobactam Sod (Zosyn 3.375gm Ivpb (Pre-Docked)) 3.375 gm IVPB Q8H-IV HI PRN Reason: Protocol Last Admin: 08/26/16 09:34 Dose: 3.375 gm - Objective Vital Signs: Vital Signs Temperature 97.6 F 08/26/16 08:00 Pulse Rate 71 08/26/16 08:00 Respiratory Rate 20 08/26/16 08:00 Blood Pressure 118/75 08/26/16 08:00 O2 Sat by Pulse Oximetry (%) 95 08/25/16 21:00 Constitutional: Yes: Calm, Mild Distress Cardiovascular: Yes: Regular Rate and Rhythm Respiratory: Yes: Regular, CTA Bilaterally Gastrointestinal: Yes: Normal Bowel Sounds, Soft Musculoskeletal: Yes: WNL Extremities: Yes: WNL Neurological: Yes: Alert, Oriented Psychiatric: Yes: Alert Labs: CBC, BMP 08/25/16 05:10 08/25/16 05:10 Assessment/Plan Problem List - Problems (1) Acute cholecystitis Code(s): K81.0 - ACUTE CHOLECYSTITIS (2) Lung mass Code(s): R91.8 - OTHER NONSPECIFIC AB patient has been evaluated by surgery and GI plan continue as per gi continue lisa post op
--- NOTE | 2016-08-26 15:36 | PN ---
Progress Note, Physician Chief Complaint: POD1 s/p lap wood History of Present Illness: Pt seen and examined resting in bed, but has been OOB and ambulated per nurse. Voiding frequently, + flatus, no BM yet. Pain this morning, had T#3 recently, mostly in central abdomen, more incisional than deep inside. Pt has no appetite yet, but has had clear liquids last night and this morning. No nausea. Does not feel ready to go home. - Current Medication List Current Medications: Active Medications Acetaminophen/Codeine Phosphate (Tylenol # 3 -) 1 tab PO Q6H PRN PRN Reason: PAIN 1-5 Last Admin: 08/26/16 02:22 Dose: 1 tab Acetaminophen/Codeine Phosphate (Tylenol # 3 -) 2 tab PO Q6H PRN PRN Reason: PAIN 6-10 Last Admin: 08/26/16 12:43 Dose: 2 tab Albuterol/Ipratropium (Duoneb -) 1 amp NEB Q4H PRN PRN Reason: SHORTNESS OF BREATH Budesonide/Formoterol Fumarate (Symbicort 160/4.5mcg -) 2 puff IH BID [facility] Last Admin: 08/26/16 09:34 Dose: 2 puff Docusate Sodium (Colace -) 100 mg PO BID [facility] Last Admin: 08/26/16 09:34 Dose: 100 mg Fentanyl (Sublimaze Injection -) 50 mcg IVPUSH [id number] PRN PRN Reason: PAIN Stop: 08/28/16 14:47 Hydromorphone HCl (Dilaudid Injection -) 1 mg IVPB Q3H PRN PRN Reason: SEVERE PAIN Pantoprazole Sodium (Protonix 40mg Ivpb (Pre-Docked)) 100 mls @ 200 mls/hr IVPB DAILY [facility] Last Admin: 08/26/16 09:34 Dose: 200 mls/hr Potassium Chloride 20 meq/ (Sodium Chloride) 1,010 mls @ 75 mls/hr IV Q13H [facility] Last Admin: 08/25/16 02:07 Dose: 75 mls/hr Lactated Ringer's (Lactated Ringers Solution) 1,000 mls @ 125 mls/hr IV ASDIR [facility] Last Admin: 08/26/16 06:45 Dose: 125 mls/hr Metoprolol Succinate (Toprol Xl -) 50 mg PO DAILY [facility] Last Admin: 08/26/16 09:34 Dose: 50 mg Piperacillin Sod/Tazobactam Sod (Zosyn 3.375gm Ivpb (Pre-Docked)) 3.375 gm IVPB Q8H-IV HI PRN Reason: Protocol Last Admin: 08/26/16 09:34 Dose: 3.375 gm - Objective Vital Signs: Vital Signs Temperature 98.4 F 08/26/16 14:00 Pulse Rate 65 08/26/16 14:00 Respiratory Rate 20 08/26/16 14:00 Blood Pressure 112/63 08/26/16 14:00 O2 Sat by Pulse Oximetry (%) 95 08/26/16 09:00 Constitutional: Yes: No Distress, Calm, Obese Cardiovascular: Yes: Regular Rate and Rhythm. No: Murmur Respiratory: Yes: Regular, CTA Bilaterally. No: Wheezes Gastrointestinal: Yes: Soft, Abdomen, Obese, Hypoactive Bowel Sounds, Tenderness (mainly incisional, some RUQ, no R/G) Wound/Incision: Yes: Steri Strips (under dressings), Dressing Dry and Intact ( small dried light stain on R lower dressing) Neurological: Yes: Alert, Oriented Labs: CBC, BMP 08/25/16 05:10 08/25/16 05:10 no new labs Problem List - Problems (1) Hypertension Code(s): I10 - ESSENTIAL (PRIMARY) HYPERTENSION (2) Obesity (BMI 30.0-34.9) Code(s): E66.9 - OBESITY, UNSPECIFIED (3) Asthma Code(s): J45.909 - UNSPECIFIED ASTHMA, UNCOMPLICATED (4) Hypokalemia, gastrointestinal losses Code(s): E87.6 - HYPOKALEMIA (5) Dehydration, mild Code(s): E86.0 - DEHYDRATION (6) Cholelithiasis and acute cholecystitis with obstruction Assessment/Plan: POD1 s/p laparoscopic cholecystectomy doing well, pain controlled with oral meds today tolerating clears, not much appetite but willing to try some soft foods will remove dressings tomorrow prior to d/c home incentive spirometry will reduce fluids and saline lock at dinner discussed with pt and granddaughter Monet at bedside and Shannon by phone: pt to f/u with PMD next week - would continue metoprolol but hold HCTZ on d/c until pt sees Dr. Green anticipate d/c home tomorrow, pt to call my office for f/u appt in 1-2 weeks pt to continue pulm toilet and daily use of Symbicort (at bedside) as directed by pulm pt to continue stool softener bid until not taking T#3 at home anymore - to switch to Tylenol as pain decreases Code(s): K80.01 - CALCULUS OF GALLBLADDER W ACUTE CHOLECYSTITIS W OBSTRUCTION
[2016-08-26] MEDS ORDERED: LACTATED RINGERS SOLUTION 1,000 ML IV SCH (15:49)
--- NOTE | 2016-08-26 16:15 | PN ---
Progress Note, Physician History of Present Illness: no complaints - Current Medication List Current Medications: Active Medications Acetaminophen/Codeine Phosphate (Tylenol # 3 -) 1 tab PO Q6H PRN PRN Reason: PAIN 1-5 Last Admin: 08/26/16 02:22 Dose: 1 tab Acetaminophen/Codeine Phosphate (Tylenol # 3 -) 2 tab PO Q6H PRN PRN Reason: PAIN 6-10 Last Admin: 08/26/16 12:43 Dose: 2 tab Albuterol/Ipratropium (Duoneb -) 1 amp NEB Q4H PRN PRN Reason: SHORTNESS OF BREATH Budesonide/Formoterol Fumarate (Symbicort 160/4.5mcg -) 2 puff IH BID [facility] Last Admin: 08/26/16 09:34 Dose: 2 puff Docusate Sodium (Colace -) 100 mg PO BID [facility] Last Admin: 08/26/16 09:34 Dose: 100 mg Fentanyl (Sublimaze Injection -) 50 mcg IVPUSH [id number] PRN PRN Reason: PAIN Stop: 08/28/16 14:47 Hydromorphone HCl (Dilaudid Injection -) 1 mg IVPB Q3H PRN PRN Reason: SEVERE PAIN Pantoprazole Sodium (Protonix 40mg Ivpb (Pre-Docked)) 100 mls @ 200 mls/hr IVPB DAILY [facility] Last Admin: 08/26/16 09:34 Dose: 200 mls/hr Potassium Chloride 20 meq/ (Sodium Chloride) 1,010 mls @ 75 mls/hr IV Q13H [facility] Last Admin: 08/25/16 02:07 Dose: 75 mls/hr Lactated Ringer's (Lactated Ringers Solution) 1,000 mls @ 75 mls/hr IV ASDIR [facility] Metoprolol Succinate (Toprol Xl -) 50 mg PO DAILY [facility] Last Admin: 08/26/16 09:34 Dose: 50 mg Piperacillin Sod/Tazobactam Sod (Zosyn 3.375gm Ivpb (Pre-Docked)) 3.375 gm IVPB Q8H-IV HI PRN Reason: Protocol Last Admin: 08/26/16 09:34 Dose: 3.375 gm - Objective Vital Signs: Vital Signs Temperature 98.4 F 08/26/16 14:00 Pulse Rate 65 08/26/16 14:00 Respiratory Rate 20 08/26/16 14:00 Blood Pressure 112/63 08/26/16 14:00 O2 Sat by Pulse Oximetry (%) 95 08/26/16 09:00 Constitutional: Yes: No Distress HENT: Yes: Atraumatic Neck: Yes: Supple Cardiovascular: Yes: Regular Rate and Rhythm Respiratory: Yes: CTA Bilaterally Gastrointestinal: Yes: Normal Bowel Sounds, Tenderness (at the surgery site) Extremities: Yes: WNL Neurological: Yes: Alert, Oriented Labs: CBC, BMP 08/25/16 05:10 08/25/16 05:10 Problem List - Problems (1) Acute cholecystitis Assessment/Plan: ON CLEAR LIQUID DIET IVF, IV ABX GI AND SURGERY CONSULT OR IN AM D/W SURGERY Code(s): K81.0 - ACUTE CHOLECYSTITIS (2) Asthma Assessment/Plan: STABLE CONTINUE HOME MEDS Code(s): J45.909 - UNSPECIFIED ASTHMA, UNCOMPLICATED (3) Hypertension Assessment/Plan: ON MEDS STABLE Code(s): I10 - ESSENTIAL (PRIMARY) HYPERTENSION (4) Hypokalemia, gastrointestinal losses Assessment/Plan: REPLACE K FU LABS Code(s): E87.6 - HYPOKALEMIA Assessment/Plan pt did well after regular diet dc tomorrow after seen and cleared by surgeryu prn tylenol for pain fu pmd next week
--- NOTE | 2016-08-26 21:36 | OP ---
DATE OF OPERATION: 08/25/2016 PREOPERATIVE DIAGNOSIS: Acute cholecystitis with obstruction. POSTOPERATIVE DIAGNOSIS: Acute cholecystitis with obstruction. PROCEDURE: Laparoscopic cholecystectomy. SURGEON: Kevin Whitfield MD ASSOCIATE EDITOR: Nawaf Wilson MD ANESTHESIA: General endotracheal with local (20 mL with 1% lidocaine plus 0.5% Marcaine). ESTIMATED BLOOD LOSS: 10 mL. FLUIDS: 1500 mL of crystalloid. SPECIMEN: Gallbladder to pathology. FINDINGS: Distended gallbladder with hydrops, a very large cystic duct, and the critical view was identified. DISPOSITION: Stable and extubated to PACU. INDICATIONS FOR PROCEDURE: The patient is a 70-year-old female who initially presented through the emergency room with approximately 3 days of right upper quadrant pain that had been worst the day prior to presentation, associated with some nausea and vomiting. The day before coming to the ER, she had shaking chills, itching and several episodes of vomiting that began after dinner. In the ER, she had a low grade temperature of 99.3, mildly elevated white count and LFTs, normal pancreatic enzymes and hypokalemia with an alkalosis. She was admitted and provided with IV fluids, antibiotics and potassium replacement. CT showed mild periportal edema with approximately 1 cm calcification, initially thought possibly to be a lymph node, but ultrasound confirmed multiple gallstones and a stone which appeared impacted in the cystic duct or near the neck of the gallbladder, without any pericholecystic fluid or wall thickening with a normal CBD. She then had an MRCP, which did confirm gallstones with some trace pericholecystic fluid but no stones in the common bile duct and no biliary dilation. Gastroenterology had been consulted and felt that she did not require ERCP. Her potassium was corrected over the course of the next day, which had remained low initially, and she continued on fluids and antibiotics. She was finally brought to the operating room for laparoscopic possible open cholecystectomy. The risks, benefits and alternatives of the procedures were discussed with the patient and the family. Informed consent was signed. DESCRIPTION OF PROCEDURE: The patient was brought to the operating room and laid supine on the operating table. Sequential compression devices were applied to bilateral lower extremities. As the patient was on treatment antibiotic (Zosyn ) and had had her scheduled doses for over a day, no additional antibiotics were given in the operating room. After induction and intubation by anesthesia, the patient's abdomen was prepped with ChloraPrep and draped in sterile fashion. A scalpel was used to make a small midline supraumbilical incision. This was carried down into the subcutaneous tissues with electrocautery. Retractors were used to help identify the abdominal fascia, which was then scored with electrocautery and grasped with Amena clamps. Once elevated, the fascia was divided, and the peritoneum entered with the blunt tip of a clamp. A small fatty adhesion was identified at the right side of the peritoneum, which was divided carefully with electrocautery over a clamp tip. A fingertip was used to ensure no other immediately underlying adhesions. A [id number] Polysorb stay suture was then placed in the abdominal fascia for later closure, and the Yazmin port was introduced directly into the abdomen and secured in place with the balloon. The abdomen was insufflated with carbon dioxide, and the 5-mm laparoscope inserted to inspect the abdominal cavity. The gallbladder was visible under the edge of the liver and appeared to have some thin, overlying adhesions. A 5-mm trocar was then inserted under direct vision in the subxiphoid region and another in the right lateral upper quadrant, also under direct vision. A grasper was used through the right lateral upper quadrant port to grasp the fundus of the gallbladder, and a [place] dissector used to take down the thin overlying adhesions. The fundus was then elevated over the edge of the liver, and an additional 5-mm port was placed in the right upper quadrant, through which a grasper was used to hold the infundibulum of the gallbladder. There appeared to be at least one stone near the neck of the gallbladder that kept falling toward the cystic duct, that was carefully and gently milked several times back toward the gallbladder, such that the infundibulum could be grasped without crushing the stone. The base of the gallbladder was then dissected with the [place], until the cystic duct was also identified and noted to be quite enlarged. This was cleaned and isolated carefully until the critical view was appreciated anteriorly and posteriorly. The subxiphoid port was then upsized to an 11-mm port, and a 10-mm clip attempted to be used across the cystic duct, but the duct itself was too wide. The cystic artery was then identified also behind the lymph node of Calot. It was isolated with the [place] dissector and clipped 2 proximally and 1 distally with the 10-mm clips and divided with endo scissors. The 10mm clip was removed from the cystic duct with the [place]. The extra large Weck clips were then used, 2 proximally and 1 distally, to clip the cystic duct, and this was also divided with endo scissors , at which point some small crushed stone debris was visible at both ends of the divided duct. The hook cautery was then used to take the gallbladder off the liver bed and, just before final separation at the top, a tiny hole was made in the gallbladder with the cautery which leaked a small amount of clear bile (hydrops). The gallbladder itself was placed into an EndoCatch bag, and the camera moved to the subxiphoid port, and the gallbladder and bag were removed with the Yazmin port from the umbilical site under direct vision. The Yazmin was then replaced, pneumoperitoneum reestablished, and the camera reinserted to inspect the operative site. The suction global coordinator was then used to irrigate the operative area with saline solution, and it was suctioned clear of fluid, a small blood clot and some tiny stone remnants. The three ports were then removed under direct vision, and the Yazmin port itself and the camera removed. The abdomen was then exsufflated of carbon dioxide. The figure-of- eight stay suture was tied to close the abdominal fascia at the umbilical port site. Hemostasis was achieved in each port with electrocautery where needed, and each port was irrigated with saline solution. Local anesthetic consisting of 1% lidocaine and 0.5% Marcaine was infiltrated at each port site for a total of 20 mL. The skin was then closed with 4-0 Polysorb subcuticular sutures, running at the 2 larger sites and interrupted sutures at the other 2. Benzoin and Steri-Strips were then applied over the incision, and gauze and Tegaderm dressings were applied over that. Counts were correct at the end of the procedure. Dr. Wilson assisted with skin retraction, right upper quadrant trocar insertions and positioning and manipulation of the gallbladder by use of the fundal grasper, as well as camera manipulation. The patient was then awakened and extubated, moved back to her stretcher and taken to the recovery room in stable condition, having tolerated the procedure well. Kevin Whitfield M.D. CRISTAL/[id number] MTDD
[2016-08-27] MEDS: PIPERACILLIN/TAZOB 3.375 GM/50 ML PRE-DOCKED IVPB SCH ×2 (02:47→10:37)
[2016-08-27 08:40] VITALS: BP 116/63; PULSE 72; TEMP 98.3
--- NOTE | 2016-08-27 09:59 | PN ---
Progress Note, Physician Chief Complaint: POD2 s/p lap wood History of Present Illness: Pt ambulating, seen and examined back in bed. Voiding frequently, + flatus, no BM yet. Pain is better, tolerating diet. - Current Medication List Current Medications: Active Medications Acetaminophen/Codeine Phosphate (Tylenol # 3 -) 1 tab PO Q6H PRN PRN Reason: PAIN 1-5 Last Admin: 08/26/16 02:22 Dose: 1 tab Acetaminophen/Codeine Phosphate (Tylenol # 3 -) 2 tab PO Q6H PRN PRN Reason: PAIN 6-10 Last Admin: 08/26/16 21:44 Dose: 2 tab Albuterol/Ipratropium (Duoneb -) 1 amp NEB Q4H PRN PRN Reason: SHORTNESS OF BREATH Budesonide/Formoterol Fumarate (Symbicort 160/4.5mcg -) 2 puff IH BID [facility] Last Admin: 08/26/16 21:42 Dose: 2 puff Docusate Sodium (Colace -) 100 mg PO BID [facility] Last Admin: 08/26/16 21:42 Dose: 100 mg Fentanyl (Sublimaze Injection -) 50 mcg IVPUSH [id number] PRN PRN Reason: PAIN Stop: 08/28/16 14:47 Hydromorphone HCl (Dilaudid Injection -) 1 mg IVPB Q3H PRN PRN Reason: SEVERE PAIN Pantoprazole Sodium (Protonix 40mg Ivpb (Pre-Docked)) 100 mls @ 200 mls/hr IVPB DAILY [facility] Last Admin: 08/26/16 09:34 Dose: 200 mls/hr Potassium Chloride 20 meq/ (Sodium Chloride) 1,010 mls @ 75 mls/hr IV Q13H [facility] Last Admin: 08/25/16 02:07 Dose: 75 mls/hr Lactated Ringer's (Lactated Ringers Solution) 1,000 mls @ 75 mls/hr IV ASDIR [facility] Last Admin: 08/26/16 17:06 Dose: 75 mls/hr Metoprolol Succinate (Toprol Xl -) 50 mg PO DAILY [facility] Last Admin: 08/26/16 09:34 Dose: 50 mg Piperacillin Sod/Tazobactam Sod (Zosyn 3.375gm Ivpb (Pre-Docked)) 3.375 gm IVPB Q8H-IV HI PRN Reason: Protocol Last Admin: 08/27/16 02:47 Dose: 3.375 gm - Objective Vital Signs: Vital Signs Temperature 98.3 F 08/27/16 08:00 Pulse Rate 72 08/27/16 08:00 Respiratory Rate 18 08/27/16 08:00 Blood Pressure 116/63 08/27/16 08:00 O2 Sat by Pulse Oximetry (%) 95 08/26/16 21:00 Constitutional: Yes: No Distress, Calm, Other (ambulatory) Cardiovascular: Yes: Regular Rate and Rhythm. No: Murmur Respiratory: Yes: Regular, CTA Bilaterally. No: Wheezes Gastrointestinal: Yes: Soft, Abdomen, Obese, Tenderness (mild RUQ and less at umbilicus, no R/G) Wound/Incision: Yes: Clean/Dry, Well Approximated, Steri Strips (with some staining beneath but dry x 4), Dressing Removed Neurological: Yes: Alert, Oriented Labs: CBC, BMP 08/25/16 05:10 08/25/16 05:10 Problem List - Problems (1) Hypertension Code(s): I10 - ESSENTIAL (PRIMARY) HYPERTENSION (2) Obesity (BMI 30.0-34.9) Code(s): E66.9 - OBESITY, UNSPECIFIED (3) Asthma Code(s): J45.909 - UNSPECIFIED ASTHMA, UNCOMPLICATED (4) Hypokalemia, gastrointestinal losses Code(s): E87.6 - HYPOKALEMIA (5) Dehydration, mild Code(s): E86.0 - DEHYDRATION (6) Cholelithiasis and acute cholecystitis with obstruction Assessment/Plan: POD2 s/p laparoscopic cholecystectomy doing well, pain controlled with oral meds tolerating diet, no BM yet dressings removed - steris intact and dry minimal tenderness encouraged stool softener and/or laxative at home prn d/c home f/u 1-2 weeks in clinic, pt to call for appt Code(s): K80.01 - CALCULUS OF GALLBLADDER W ACUTE CHOLECYSTITIS W OBSTRUCTION
[2016-08-27] MEDS ORDERED: PT OWN MED DRAWER 7, Y5N ONE (10:29)
--- NOTE | 2016-08-27 10:30 | PN ---
Progress Note, Physician History of Present Illness: 70yo Female Patient w/ PmHx: HTN, Cervical Ca, Hysterectomy, presents to ED c/o worsening abdominal pain for past 3 days. Associated nausea. Patient states when she eats her abdomen hurts, and when she does not eat pain is worse. OTC [place] with no relief. Last meal 6-7pm last night. Patient denies any other complaints at this time. PMH Asthma COPD diet controlled DM HTN Osteoporosis Normal MIBI stress [facility] 07[facility]09[facility] 2017 mild carotid plaque 2017 - Current Medication List Current Medications: Active Medications Acetaminophen/Codeine Phosphate (Tylenol # 3 -) 1 tab PO Q6H PRN PRN Reason: PAIN 1-5 Last Admin: 08/26/16 02:22 Dose: 1 tab Acetaminophen/Codeine Phosphate (Tylenol # 3 -) 2 tab PO Q6H PRN PRN Reason: PAIN 6-10 Last Admin: 08/26/16 21:44 Dose: 2 tab Albuterol/Ipratropium (Duoneb -) 1 amp NEB Q4H PRN PRN Reason: SHORTNESS OF BREATH Budesonide/Formoterol Fumarate (Symbicort 160/4.5mcg -) 2 puff IH BID [facility] Last Admin: 08/26/16 21:42 Dose: 2 puff Docusate Sodium (Colace -) 100 mg PO BID [facility] Last Admin: 08/26/16 21:42 Dose: 100 mg Fentanyl (Sublimaze Injection -) 50 mcg IVPUSH [id number] PRN PRN Reason: PAIN Stop: 08/28/16 14:47 Hydromorphone HCl (Dilaudid Injection -) 1 mg IVPB Q3H PRN PRN Reason: SEVERE PAIN Pantoprazole Sodium (Protonix 40mg Ivpb (Pre-Docked)) 100 mls @ 200 mls/hr IVPB DAILY [facility] Last Admin: 08/26/16 09:34 Dose: 200 mls/hr Potassium Chloride 20 meq/ (Sodium Chloride) 1,010 mls @ 75 mls/hr IV Q13H [facility] Last Admin: 08/25/16 02:07 Dose: 75 mls/hr Lactated Ringer's (Lactated Ringers Solution) 1,000 mls @ 75 mls/hr IV ASDIR [facility] Last Admin: 08/26/16 17:06 Dose: 75 mls/hr Metoprolol Succinate (Toprol Xl -) 50 mg PO DAILY [facility] Last Admin: 08/26/16 09:34 Dose: 50 mg Piperacillin Sod/Tazobactam Sod (Zosyn 3.375gm Ivpb (Pre-Docked)) 3.375 gm IVPB Q8H-IV HI PRN Reason: Protocol Last Admin: 08/27/16 02:47 Dose: 3.375 gm - Objective Vital Signs: Vital Signs Temperature 98.3 F 08/27/16 08:00 Pulse Rate 72 08/27/16 08:00 Respiratory Rate 18 08/27/16 08:00 Blood Pressure 116/63 08/27/16 08:00 O2 Sat by Pulse Oximetry (%) 95 08/26/16 21:00 Eyes: Yes: WNL, Conjunctiva Clear, EOM Intact HENT: Yes: WNL, Atraumatic, Normocephalic Neck: Yes: WNL, Supple, Trachea Midline Cardiovascular: Yes: WNL, Regular Rate and Rhythm Respiratory: Yes: WNL, Regular, CTA Bilaterally Genitourinary: Yes: WNL Musculoskeletal: Yes: WNL Extremities: Yes: WNL Edema: No Integumentary: Yes: WNL Neurological: Yes: WNL, Alert, Oriented ...Motor Strength: WNL Psychiatric: Yes: WNL Labs: CBC, BMP 08/25/16 05:10 08/25/16 05:10 Problem List - Problems (1) Acute cholecystitis Code(s): K81.0 - ACUTE CHOLECYSTITIS (2) Asthma Code(s): J45.909 - UNSPECIFIED ASTHMA, UNCOMPLICATED (3) Calculus of gallbladder with biliary obstruction but without cholecystitis Code(s): K80.21 - CALCULUS OF GALLBLADDER W/O CHOLECYSTITIS WITH OBSTRUCTION (4) Dehydration, mild Code(s): E86.0 - DEHYDRATION (5) Hypertension Code(s): I10 - ESSENTIAL (PRIMARY) HYPERTENSION (6) Hypokalemia, gastrointestinal losses Code(s): E87.6 - HYPOKALEMIA (7) Lung mass Code(s): R91.8 - OTHER NONSPECIFIC ABNORMAL FINDING OF LUNG FIELD (8) Obesity (BMI 30.0-34.9) Code(s): E66.9 - OBESITY, UNSPECIFIED Assessment/Plan Acute cholecystatis s/p lap choli POD#2 Hypokalemia Asthma COPD diet controlled DM HTN Osteoporosis Normal MIBI stress [facility] 07[facility]09-2016 [facility] 2017 mild carotid plaque 2017 Plan; cardiac telles stable cont pesent rx
[2016-08-27] MEDS: BUDESONIDE/FORMETEROL FUMARATE 160/4.5 mcg INHALER IH SCH (10:37)
[2016-08-27] MEDS: METOPROLOL SUCCINATE 50 MG TAB.SR.24H (FP) PO SCH (10:37)
[2016-08-27] MEDS: DOCUSATE SODIUM 100 MG CAPSULE (FP) PO SCH (10:37)
[2016-08-27] MEDS: PANTOPRAZOLE SODIUM 100 ML IVPB SCH (10:37)
--- NOTE | 2016-08-27 13:28 | PATH ---
Surgical Pathology Report Patient Name: DAYSI HO [facility]. Rec. #: [id number] /Age/Gender: 1945 (Age: 70) / F Account: [id number] Location: [address] [place] [address] Taken: 08/25/2016 Received: 08/26/2016 Reported: 08/27/2016 Physicians: Brunilda Cavanaugh M.D. Specimen(s) Received GALLBLADDER Clinical History Acute cholecystitis Final Diagnosis GALLBLADDER, CHOLECYSTECTOMY: CHRONIC CHOLECYSTITIS AND CHOLELITHIASIS. Electronically Signed Guillermo Givens M.D. Gross Description Received in formalin, labeled "gallbladder," is a 9.5 x 3.3 x 3.0 cm. gallbladder with a 0.2 cm. in length portion of cystic duct attached. The outer surface is mercer-juarez and varies from smooth to shaggy. The lumen contains clear, mucinous bile as well as abundant black, irregular to fragmented choleliths ranging from 0.1-0.8 cm in greatest dimension. The mucosa is eroded. The wall of the gallbladder averages 0.1 cm. in thickness. [employer] sections are submitted in one cassette. /08/26/201608/26/2016
--- NOTE | 2016-08-27 13:39 | PN ---
Progress Note, Physician History of Present Illness: stable no new issues - Current Medication List Current Medications: Active Medications Acetaminophen/Codeine Phosphate (Tylenol # 3 -) 1 tab PO Q6H PRN PRN Reason: PAIN 1-5 Last Admin: 08/26/16 02:22 Dose: 1 tab Acetaminophen/Codeine Phosphate (Tylenol # 3 -) 2 tab PO Q6H PRN PRN Reason: PAIN 6-10 Last Admin: 08/26/16 21:44 Dose: 2 tab Albuterol/Ipratropium (Duoneb -) 1 amp NEB Q4H PRN PRN Reason: SHORTNESS OF BREATH Budesonide/Formoterol Fumarate (Symbicort 160/4.5mcg -) 2 puff IH BID [facility] Last Admin: 08/27/16 10:37 Dose: 2 puff Docusate Sodium (Colace -) 100 mg PO BID [facility] Last Admin: 08/27/16 10:37 Dose: 100 mg Fentanyl (Sublimaze Injection -) 50 mcg IVPUSH [id number] PRN PRN Reason: PAIN Stop: 08/28/16 14:47 Hydromorphone HCl (Dilaudid Injection -) 1 mg IVPB Q3H PRN PRN Reason: SEVERE PAIN Pantoprazole Sodium (Protonix 40mg Ivpb (Pre-Docked)) 100 mls @ 200 mls/hr IVPB DAILY [facility] Last Admin: 08/27/16 10:37 Dose: 200 mls/hr Potassium Chloride 20 meq/ (Sodium Chloride) 1,010 mls @ 75 mls/hr IV Q13H [facility] Last Admin: 08/25/16 02:07 Dose: 75 mls/hr Lactated Ringer's (Lactated Ringers Solution) 1,000 mls @ 75 mls/hr IV ASDIR [facility] Last Admin: 08/26/16 17:06 Dose: 75 mls/hr Metoprolol Succinate (Toprol Xl -) 50 mg PO DAILY [facility] Last Admin: 08/27/16 10:37 Dose: 50 mg Piperacillin Sod/Tazobactam Sod (Zosyn 3.375gm Ivpb (Pre-Docked)) 3.375 gm IVPB Q8H-IV HI PRN Reason: Protocol Last Admin: 08/27/16 10:37 Dose: 3.375 gm - Objective Vital Signs: Vital Signs Temperature 98.3 F 08/27/16 08:00 Pulse Rate 72 08/27/16 08:00 Respiratory Rate 18 08/27/16 08:00 Blood Pressure 116/63 08/27/16 08:00 O2 Sat by Pulse Oximetry (%) 95 08/26/16 21:00 Constitutional: Yes: No Distress, Calm Cardiovascular: Yes: Regular Rate and Rhythm Respiratory: Yes: Regular, CTA Bilaterally Gastrointestinal: Yes: Normal Bowel Sounds, Soft Musculoskeletal: Yes: WNL Extremities: Yes: WNL Neurological: Yes: Alert, Oriented Psychiatric: Yes: Alert, Oriented Labs: CBC, BMP 08/25/16 05:10 08/25/16 05:10 Assessment/Plan Problem List - Problems (1) Acute cholecystitis Code(s): K81.0 - ACUTE CHOLECYSTITIS (2) Lung mass Code(s): R91.8 - OTHER NONSPECIFIC AB patient has been evaluated by surgery and GI plan continue as per gi continue zosyn patient starting to tolerate orally once she does that will switch to oral which she can take for few days
[2016-08-27] MEDS ORDERED: AMOX TR/POT CLAV 875MG/125MG TABLETS (FP) PO SCH (17:30)
== END 2016-08-27 16:20 | disposition home or self-care (01) | DRG 418 ==
LOC: JER 02:18 → JERBED 11:58 → J6S 20:57
PROVIDERS: ADMIT Internal Medicine; ATTEND Internal Medicine
PROC: 0FT44ZZ Resection of Gallbladder, Percutaneous Endoscopic Approach (ICD-10-PCS; principal; 2016-08-25 11:00)
DX: K80.12 Calculus of gallbladder with acute and chronic cholecystitis without obstruction (principal); J98.11 Atelectasis; I10 Essential (primary) hypertension; J45.909 Unspecified asthma, uncomplicated; E87.6 Hypokalemia; E86.0 Dehydration; E66.9 Obesity, unspecified; Z68.36 Body mass index [BMI] 36.0-36.9, adult; Z85.41 Personal history of malignant neoplasm of cervix uteri; M81.0 Age-related osteoporosis without current pathological fracture; J44.9 Chronic obstructive pulmonary disease, unspecified; M17.0 Bilateral primary osteoarthritis of knee; E11.9 Type 2 diabetes mellitus without complications
CPT/HCPCS: 36415; 71250-TC; 74177-TC; 74181-TC; 76705-TC; 80048; 80053; 81003; 82150; 82550; 83690; 84484; 85025; 86850; 86900; 86901; 87086; 88304-TC; 93005; 93010; 94010; 94760; 99283-25

== ENCOUNTER 2020-09-15 11:48 | Emergency (ER) | payer MEDICARE, OTHER ==
[2020-09-15 11:53] VITALS: BP 152/80; PULSE 84; TEMP 98; BMI 37.3
[2020-09-15 13:26] LABS: URINE APPEARANCE Clear; URINE BILIRUBIN Negative (NEGATIVE); URINE COLOR Yellow; URINE GLUCOSE (UA) Negative (NEGATIVE); URINE KETONE Negative (NEGATIVE); URINE LEUK ESTERASE 2+ (NEGATIVE); URINE NITRITE Negative (NEGATIVE); URINE PROTEIN 2+ (NEGATIVE); URINE UROBILINOGEN 0.2 mg/dL (0.2-1.0)
[2020-09-15 13:28] LABS: EPI CELLS 2.3 /uL (0-25.1); HYALINE CASTS 1.01 /uL (0-3.1); URINE BACTERIA 1158.4 /uL (0-1359); URINE RBC 220.4 /uL (0-23.9); URINE WBC 7315.7 /uL (0-25.8)
[2020-09-15 13:47] LABS: URINE CRYSTALS NON SEEN /hpf; YEAST NON SEEN (NEGATIVE)
== END 2020-09-15 14:16 | disposition home or self-care (01) ==
LOC: JER 11:48
DX: N30.00 Acute cystitis without hematuria (principal); R05 Cough
CPT/HCPCS: 71046-TC-FY; 81003; 87086; 87186; 99284-25